=== PATIENT | female | born 1955 | race African-American/Black ===

== ENCOUNTER 2019-04-07 12:02 | Inpatient (IN) | payer OTHER ==
[~2019-04-07] VITALS: Ht 175.3 cm; Wt 102.3 kg
[2019-04-07] MEDS ORDERED: SODIUM CHLORIDE 0.9% 1L BAG IV* STA (12:15)
[2019-04-07] MEDS ORDERED: SOD CHLORIDE 0.9% 500 ML IV STA (12:29)
[2019-04-07] MEDS ORDERED: FUROSEMIDE 40 MG INJ IV ONE (12:30)
[2019-04-07] MEDS ORDERED: CEFTRIAXONE 1 GM/50 ML (PMX) 50 ML IVPB ONE (12:30)
[2019-04-07] MEDS ORDERED: IBUPROFEN 600 MG TAB PO ONE (12:30)
--- NOTE | 2019-04-07 12:42 | ERD ---
ER Documentation Chief Complaint Chief Complaint SHORTNESS OF BREATH, PET SCAN SHOWS PLEUREL EFFUSION HPI This is a 63-year-old woman presenting with increased shortness of breath and dyspnea on exertion x1 week diagnosed with a left pleural effusion yesterday her oncologist's office. She was referred here for admission and pleurocentesis. She is status post proctectomy and colostomy bag placement about 2 months ago and was diagnosed with rectal cancer about 1 year ago. She states over the last few months she has lost about 20 pounds. Patient denies fevers or chills, no abdominal pain, no chest pain, no headache or blurry vision, no fevers or chills. ROS All systems reviewed and are negative except as per history of present illness. Medications Home Meds Reported Medications Hydrocodone/Acetaminophen ([place] 10-325 Tablet) 1 Each Tablet, 1 EACH PO Q6H, TAB 04/07/19 Amlodipine Besylate* (Norvasc*) 5 Mg Tablet, 5 MG PO BID, TAB 04/07/19 Allergies Allergies: Coded Allergies: Sulfa (Sulfonamide Antibiotics) (Verified Allergy, Intermediate, rash, 04/07/19) PMhx/Soc Metastatic rectal carcinoma, hypertension FmHx Family History: No diabetes Physical Exam Vitals Vital Signs Date Temp Pulse Resp B/P (MAP) Pulse Ox O2 O2 Flow FiO2 Time Delivery Rate 04/07/19 88 18 130/77 96 Room Air 17:03 (94) 04/07/19 97 24 134/77 97 Room Air 15:11 (96) 04/07/19 98.0 104 23 134/77 98 Room Air 14:00 (96) 04/07/19 98.3 118 22 150/78 99 12:09 (102) Physical Exam GENERAL: Well-developed, well-nourished, well-hydrated, dyspneic, afebrile HEENT: Moist mucous membranes, pink conjunctiva, no cervical spine tenderness or step-off deformities, no goiter, no jaundice or icterus, extraocular movements intact without pain. No submandibular induration, and no pharyngeal erythema NEURO: Alert and oriented 3, cranial nerves II through XII intact bilaterally, pupils equal round reactive to light, no focal deficits or facial asymmetry, sensation intact distally Strength 5/5 in upper and lower extremities bilaterally CARDIAC: Tachycardic and regular, no murmurs rubs or gallops LUNGS: Clear breath sounds on the right, absent breath sounds on the left ABDOMEN: Soft nontender, no guarding, no rigidity, no rebound, no psoas sign no obturator sign. SKIN: Warm and dry to touch, no abrasions, contusions, or hematomas, no lacerations, no ecchymosis, no target lesions, and without ulcers EXTREMITIES: No clubbing cyanosis or edema, calves are bilaterally symmetrical, no Homans sign, no popliteal cord sign. Distal pulses equal and bilateral PSYCH: Normal affect without agitation or irritability Result Diagram: 04/07/19 1237 04/07/19 1236 Results 24 hrs Laboratory Tests Test 04/07/19 12:36 04/07/19 12:37 04/07/19 13:21 Prothrombin Time 13.3 Sec Prothrombin Time Ratio 1.0 INR International 1.00 Normalized Ratio Activated Partial Thromboplast 35.9 Sec Time Sodium Level 141 mmol/L Potassium Level 3.8 mmol/L Chloride Level 100 mmol/L Carbon Dioxide Level 29 mmol/L Anion Gap 12 Blood Urea Nitrogen 11 mg/dl Creatinine 0.77 mg/dl Est Glomerular Filtrat > 60 mL/min Rate mL/min Glucose Level 119 mg/dl Calcium Level 9.6 mg/dl Total Bilirubin 0.5 mg/dl Direct Bilirubin 0.00 mg/dl Indirect Bilirubin 0.5 mg/dl Aspartate Amino 26 IU/L Transf (AST/SGOT) Alanine 9 IU/L Aminotransferase (ALT/SGPT) Alkaline Phosphatase 73 IU/L Troponin I < 0.012 ng/ml Total Protein 8.1 g/dl Albumin 4.1 g/dl Globulin 4.00 g/dl Albumin/Globulin Ratio 1.02 Lipase 67 U/L White Blood Count 10.0 10^3/ul Red Blood Count 3.81 10^6/ul Hemoglobin 11.0 g/dl Hematocrit 34.9 % Mean Corpuscular Volume 91.6 fl Mean Corpuscular Hemoglobin 28.9 pg Mean Corpuscular 31.5 g/dl Hemoglobin Concent Red Cell Distribution Width 12.7 % Platelet Count 529 10^3/UL Mean Platelet Volume 9.4 fl Immature Granulocytes % 0.500 % Neutrophils % 77.5 % Lymphocytes % 12.8 % Monocytes % 6.9 % Eosinophils % 1.5 % Basophils % 0.8 % Nucleated Red Blood Cells % 0.0 /100WBC Immature Granulocytes # 0.050 10^3/ul Neutrophils # 7.7 10^3/ul Lymphocytes # 1.3 10^3/ul Monocytes # 0.7 10^3/ul Eosinophils # 0.2 10^3/ul Basophils # 0.1 10^3/ul Nucleated Red Blood Cells # 0.0 10^3/ul Urine Color YELLOW Urine Clarity CLEAR Urine pH 6.0 Urine Specific [place] 1.006 Urine Ketones TRACE mg/dL Urine Nitrite NEGATIVE mg/dL Urine Bilirubin NEGATIVE mg/dL Urine Urobilinogen NEGATIVE mg/dL Urine Leukocyte Esterase NEGATIVE Alejandra/ul Urine Hemoglobin NEGATIVE mg/dL Urine Glucose NEGATIVE mg/dL Urine Total Protein NEGATIVE mg/dl Current Medications Medications Dose Sig/Svetlana Start Time Status Last (Trade) Ordered Route PRN Stop Time Admin Dose Reason Admin Sodium 2,000 ml BOLUS OVER 2 04/07/19 DC Chloride HOURS STAT 12:15 04/07/19 (NS) IV* 12:23 Ibuprofen 600 mg ONCE ONCE 04/07/19 DC (Motrin) PO 12:30 04/07/19 12:30 Ceftriaxone 50 ml @ ONCE ONCE 04/07/19 DC Sodium 100 mls/hr IVPB 12:30 04/07/19 12:30 Furosemide 40 mg ONCE ONCE 04/07/19 DC 04/07/19 (Lasix) IV 12:30 04/07/19 13:00 12:31 Sodium 500 ml @ Q1H STAT 04/07/19 DC 04/07/19 Chloride 500 mls/hr IV 12:29 04/07/19 13:00 13:28 1 tab ONCE ONCE 04/07/19 DC 04/07/19 Acetaminophen PO 14:30 04/07/19 14:11 / 14:31 Hydrocodone Bitart ([place] (10/325)) Amlodipine 5 mg BID PO 04/07/19 Besylate 21:00 (Norvasc) IV Flush 3 ml PER 04/07/19 (NS 3 ml) PROTOCOL IV 15:00 Ondansetron 4 mg Q6H PRN 04/07/19 HCl (Zofran IV 15:00 Inj) NAUSEA/VOMITI NG 650 mg Q6H PRN 04/07/19 Acetaminophen PO .PAIN 1-3 15:00 (Tylenol OR TEMP Tab) 650 mg Q6H PRN 04/07/19 Acetaminophen [place] .PAIN 1-3 15:00 (Tylenol OR TEMP Supp) 1 tab Q6H PRN 04/07/19 Acetaminophen PO .MOD PAIN 15:00 / 4-6 Hydrocodone Bitart ([place] (5/325)) 2 tab Q6H PRN 04/07/19 Acetaminophen PO .SEVERE 15:00 / PAIN 7-10 Hydrocodone Bitart ([place] (5/325)) Morphine 2 mg Q4H PRN 04/07/19 Sulfate IV .SEVERE 15:00 (morphine) PAIN 7-10 Docusate 100 mg Q12H PRN 04/07/19 Sodium PO 15:00 (Colace) .CONSTIPATION Magnesium 30 ml DAILY PRN 04/07/19 Hydroxide PO 15:00 (Milk Of Mag) .CONSTIPATION Bisacodyl 10 mg DAILY PRN 04/07/19 (Dulcolax [place] 15:00 Supp) .CONSTIPATION 40 mg DAILY@06 04/08/19 Pantoprazole IV 06:00 (Protonix Iv) Heparin 5,000 unit Q12 SC 04/07/19 Sodium 21:00 (Porcine) (Heparin (5000 Units/1ml)) Furosemide 20 mg DAILY IV 04/08/19 (Lasix) 09:00 Procedures/MDM IV line was established patient was placed on cardiac care unit nurse rhythm strip revealed a narrow complex tachycardia at 105 bpm with upright P and T waves. Patient was afebrile I administered furosemide 40 mg IV and 500 cc normal saline CBC and electrolytes were normal, liver function tests were normal, troponin was negative, urinalysis negative for infection. I spoke to the patient's oncologist Dr. Haider and she recommended admission for ultrasound-guided thoracentesis. Departure Diagnosis: Primary Impression: Pleural effusion Additional Impression: Rectal carcinoma Condition: THOMAS Scott MD Apr 07, 2019 12:42
[2019-04-07] MEDS ORDERED: AMLO5TAB4 PO (12:49)
[2019-04-07] MEDS ORDERED: HYDR-3980 PO (12:51)
[2019-04-07] MEDS ORDERED: HYDROCODONE/APAP (10/325) TAB PO ONE (14:30)
[2019-04-07] MEDS ORDERED: MAGNESIUM HYDROXIDE 30ML CUP PO PRN (15:00)
[2019-04-07] MEDS ORDERED: DOCUSATE SODIUM 100 MG CAP PO PRN (15:00)
[2019-04-07] MEDS ORDERED: NACL 0.9% 3 ML SYG IV SCH (15:00)
[2019-04-07] MEDS ORDERED: morphine 2 MG INJ IV PRN (15:00)
[2019-04-07] MEDS ORDERED: ACETAMINOPHEN 325 MG TAB PO PRN (15:00)
[2019-04-07] MEDS ORDERED: HYDROCODONE/APAP (5/325) TAB PO PRN (15:00)
[2019-04-07] MEDS ORDERED: ACETAMINOPHEN 650 MG SUPP PR PRN (15:00)
[2019-04-07] MEDS ORDERED: ONDANSETRON 4 MG INJ IV PRN (15:00)
[2019-04-07] MEDS ORDERED: BISACODYL 10 MG SUPP PR PRN (15:00)
--- NOTE | 2019-04-07 15:12 | HP ---
Date/Time of Note Date/Time of Note DATE: 04/07/19 TIME: 15:00 Assessment/Plan VTE Prophylaxis Pharmacological prophylaxis: heparin, other Lines/Catheters IV [facility] Type [facility]from [facility] Saline Lock Assessment/Plan Hospital Course Assessment and plan 1. Dyspnea secondary to pleural effusion. - Patient did have chest imaging that demonstrated opacification of left hemithorax without mediastinal shift. - There is also suspicious large left sided pleural effusion with underlying parenchymal disease. - Plan for thoracentesis. - Will get CT scan of the chest. - Patient Services Representative consulted. -Follow-up on cytology. 2. History of rectal cancer with previous rectal cancer surgery. - Oncologist Dr. Haider notified. - We will follow-up. 3. Essential hypertension. - Will resume antihypertensives. - Adjust medications as needed. 4. Anemia. - Follow-up on iron panel. Discussed plan of care with Dr. Faulkner Result Diagram: 04/07/19 1237 04/07/19 1236 Results 24hrs Laboratory Tests Test 04/07/19 12:36 04/07/19 12:37 04/07/19 13:21 Prothrombin Time 13.3 Prothrombin Time Ratio 1.0 INR International Normalized Ratio 1.00 Activated Partial Thromboplast Time 35.9 H Sodium Level 141 Potassium Level 3.8 Chloride Level 100 Carbon Dioxide Level 29 Anion Gap 12 Blood Urea Nitrogen 11 Creatinine 0.77 Est Glomerular Filtrat Rate mL/min > 60 Glucose Level 119 Calcium Level 9.6 Total Bilirubin 0.5 Direct Bilirubin 0.00 Indirect Bilirubin 0.5 Aspartate Amino Transf (AST/SGOT) 26 Alanine Aminotransferase (ALT/SGPT) 9 L Alkaline Phosphatase 73 Troponin I < 0.012 Total Protein 8.1 Albumin 4.1 Globulin 4.00 H Albumin/Globulin Ratio 1.02 Lipase 67 White Blood Count 10.0 Red Blood Count 3.81 L Hemoglobin 11.0 L Hematocrit 34.9 L Mean Corpuscular Volume 91.6 Mean Corpuscular Hemoglobin 28.9 L Mean Corpuscular Hemoglobin Concent 31.5 L Red Cell Distribution Width 12.7 Platelet Count 529 H Mean Platelet Volume 9.4 Immature Granulocytes % 0.500 H Neutrophils % 77.5 H Lymphocytes % 12.8 L Monocytes % 6.9 Eosinophils % 1.5 Basophils % 0.8 Nucleated Red Blood Cells % 0.0 Immature Granulocytes # 0.050 H Neutrophils # 7.7 H Lymphocytes # 1.3 Monocytes # 0.7 Eosinophils # 0.2 Basophils # 0.1 Nucleated Red Blood Cells # 0.0 Urine Color YELLOW Urine Clarity CLEAR Urine pH 6.0 Urine Specific [place] 1.006 Urine Ketones TRACE A Urine Nitrite NEGATIVE Urine Bilirubin NEGATIVE Urine Urobilinogen NEGATIVE Urine Leukocyte Esterase NEGATIVE Urine Hemoglobin NEGATIVE Urine Glucose NEGATIVE Urine Total Protein NEGATIVE HPI/ROS Admit Date/Time Admit Date/Time Hx of Present Illness This is a 63-year-old female with history of rectal cancer diagnosed in 2018, rectal cancer surgery on February 18, 2019 with colostomy placed, suspect metastasis with reported right groin recurring tumor, who was brought to [facility] due to reports of increased shortness of breath. Patient reports that she had increased shortness of breath for 1 week duration. She denies any cough or fever. She did state that she had more dyspnea on exertion. She was seen by her oncologist 1 day prior to admission where she was diagnosed with a large pleural effusion and was advised for follow-up in the hospital. On examination she did have a chest x-ray in the hospital that did reconfirm her to have left sided pleural effusion with near complete opacification in the left hemithorax without mediastinal shift. There was also suspect large left-sided pleural effusion with underlying parenchymal disease. She was noted to be slightly anemic hypochromic microcytic. Currently she remains alert and oriented. No signs of respiratory distress. We will evaluate her for the aformentiond issues. ROS 12 point review of systems obtained and entirely negative except as mentioned in history of present illness PMH/Family/Social Past Medical History Medical/surgical history 1. Hypertension 2. Rectal cancer 3. Rectal cancer surgery on February 18, 2019 with colostomy placed 4. Suspect metastasis to the right groin recurring tumor Medications Current Medications Amlodipine Besylate (Norvasc) 5 mg BID PO ; Start 04/07/19 at 21:00 IV Flush (NS 3 ml) 3 ml PER PROTOCOL IV ; Start 04/07/19 at 15:00 Ondansetron HCl (Zofran Inj) 4 mg Q6H PRN IV NAUSEA/VOMITING; Start 04/07/19 at 15:00 Acetaminophen (Tylenol Tab) 650 mg Q6H PRN PO .PAIN 1-3 OR TEMP; Start 04/07/19 at 15:00 Acetaminophen (Tylenol Supp) 650 mg Q6H PRN [place] .PAIN 1-3 OR TEMP; Start 04/07/19 at 15:00 Acetaminophen/ Hydrocodone Bitart ([place] (5/325)) 1 tab Q6H PRN PO .MOD PAIN 4- 6; Start 04/07/19 at 15:00 Acetaminophen/ Hydrocodone Bitart ([place] (5/325)) 2 tab Q6H PRN PO .SEVERE PAIN 7-10; Start 04/07/19 at 15:00 Morphine Sulfate (morphine) 2 mg Q4H PRN IV .SEVERE PAIN 7-10; Start 04/07/19 at 15:00 Docusate Sodium (Colace) 100 mg Q12H PRN PO .CONSTIPATION; Start 04/07/19 at 15:00 Magnesium Hydroxide (Milk Of Mag) 30 ml DAILY PRN PO .CONSTIPATION; Start 04/07/19 at 15:00 Bisacodyl (Dulcolax Supp) 10 mg DAILY PRN [place] .CONSTIPATION; Start 04/07/19 at 15:00 Pantoprazole (Protonix Iv) 40 mg DAILY@06 IV ; Start 04/08/19 at 06:00; Status UNV Heparin Sodium (Porcine) (Heparin (5000 Units/1ml)) 5,000 unit Q12 SC ; Start 04/07/19 at 21:00 Coded Allergies: Sulfa (Sulfonamide Antibiotics) (Verified Allergy, Intermediate, rash, 04/07/19) Family History Significant Family History: other (Reports mother had history of cervical can cer) Social History Alcohol Use: none Smoking Status: Never smoker Drug Use: none Exam/Review of Systems Vital Signs Vitals Vital Signs Date Temp Pulse Resp B/P (MAP) Pulse Ox O2 O2 Flow FiO2 Time Delivery Rate 04/07/19 98.3 118 22 150/78 99 12:09 (102) Exam Constitutional: alert, oriented Psych: nl mood/affect Head: normocephalic Eyes: nl conjunctiva Neck: non-tender Respiratory: diminished breath sounds (on left lung field ) Gastrointestinal: soft, other (colostomy bag ) Musculoskeletal: nl extremities to inspection, nl gait and stance Extremities: normal pulses 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
[2019-04-07] MEDS ORDERED: LIDOCAINE 1% (MPF) 5 ML VIAL ONE (18:12)
[2019-04-07 19:45] VITALS: Ht 175.3 cm; Wt 102.3 kg
[2019-04-07 20:00] VITALS: PULSE 108
[2019-04-07] MEDS: AMLODIPINE 5 MG TAB PO SCH (21:02)
[2019-04-07] MEDS: HYDROCODONE/APAP (5/325) TAB PO PRN (21:03)
[2019-04-07] MEDS: HEPARIN 5,000 UNIT/1 ML VIAL SC SCH (21:07)
[2019-04-08] VITALS (11 sets, daily range): BP systolic 118–166; BP diastolic 62–82; PULSE 82–98; RESP 18–20
[2019-04-08] MEDS: PANTOPRAZOLE 40 MG INJ IV SCH (05:32)
[2019-04-08] MEDS: FUROSEMIDE 20 MG INJ IV SCH (08:12)
[2019-04-08] MEDS: HEPARIN 5,000 UNIT/1 ML VIAL SC SCH ×2 (08:13→20:47)
[2019-04-08] MEDS: AMLODIPINE 5 MG TAB PO SCH ×2 (08:13→20:37)
--- NOTE | 2019-04-08 10:18 | CONS ---
Assessment/Plan Assessment/Plan Assessment/Plan (Daily) Assessment and recommendations; 1. Patient admitted with shortness of breath due to very large left pleural effusion, status post left thoracentesis where about a liter of fluid was removed with significant residual pleural effusion. This likely is malignant in etiology. 2. Hypertension. 3. Mild anemia. 4. Currently there is no evidence to indicate any infectious process. 5. History of recent colostomy with radiation and chemotherapy for colorectal cancer. Continue current supportive care. Perform repeat left thoracentesis. Send pleural fluid again for cytology. Consultation Date/Type/Reason Admit Date/Time Date of Consultation: Apr 08, 2019 Type of Consult Pulmonary Patient is a very pleasant 63-year-old lady who came into the hospital with shortness of breath. Upon evaluation a chest x-ray was done which showed a very large left pleural effusion. Patient underwent left thoracentesis yesterday and about a liter of fluid was removed with significant improvement in shortness of breath. Patient denies any chest pain, coughing, wheezing, sputum production or hemoptysis. Any fever or chills. According to her she was fine until about a few days ago and the symptoms gradually started. Past medical history; 1. History of recent colorectal cancer, status post colostomy, status post radiation and chemotherapy. Cancer is stage III. 2. Hypertension. 3. Anemia. Medications; reviewed. Allergies; sulfa drugs. Social history; history of smoking in the past. Family history; she lives with her daughter. No history of malignancy. 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 Review of systems; denies any headache, seizures, visual changes, Chest pain, coughing, wheezing, sputum production or hemoptysis. Any fever or chills. Any abdominal pain, nausea vomiting. Any weight loss. Any skin changes or any arthritis symptoms. Denies any dysphasia. Shortness of breath has markedly improved after thoracentesis. General exam; elderly lady, awake alert, currently in no distress. Date/Time of Note DATE: 04/08/19 TIME: 10:13 Past Medical History Home Meds Reported Medications Hydrocodone/Acetaminophen ([place] 10-325 Tablet) 1 Each Tablet, 1 EACH PO Q6H, TAB 04/07/19 Amlodipine Besylate* (Norvasc*) 5 Mg Tablet, 5 MG PO BID, TAB 04/07/19 Medications Current Medications Amlodipine Besylate (Norvasc) 5 mg BID PO Last administered on 04/08/19at 08:13; Admin Dose 5 MG; Start 04/07/19 at 21:00 IV Flush (NS 3 ml) 3 ml PER PROTOCOL IV ; Start 04/07/19 at 15:00 Ondansetron HCl (Zofran Inj) 4 mg Q6H PRN IV NAUSEA/VOMITING; Start 04/07/19 at 15:00 Acetaminophen (Tylenol Tab) 650 mg Q6H PRN PO .PAIN 1-3 OR TEMP; Start 04/07/19 at 15:00 Acetaminophen (Tylenol Supp) 650 mg Q6H PRN [place] .PAIN 1-3 OR TEMP; Start 04/07/19 at 15:00 Acetaminophen/ Hydrocodone Bitart ([place] (5/325)) 1 tab Q6H PRN PO .MOD PAIN 4- 6 Last administered on 04/08/19at 05:33; Admin Dose 1 TAB; Start 04/07/19 at 15:00 Acetaminophen/ Hydrocodone Bitart ([place] (5/325)) 2 tab Q6H PRN PO .SEVERE PAIN 7-10 Last administered on 04/07/19at 21:03; Admin Dose 2 TAB; Start 04/07/19 at 15:00 Morphine Sulfate (morphine) 2 mg Q4H PRN IV .SEVERE PAIN 7-10; Start 04/07/19 at 15:00 Docusate Sodium (Colace) 100 mg Q12H PRN PO .CONSTIPATION; Start 04/07/19 at 15:00 Magnesium Hydroxide (Milk Of Mag) 30 ml DAILY PRN PO .CONSTIPATION; Start 04/07/19 at 15:00 Bisacodyl (D[place]col[place] Supp) 10 mg DAILY PRN [place] .CONSTIPATION; Start 04/07/19 at 15:00 Pantoprazole (Protonix Iv) 40 mg DAILY@06 IV Last administered on 04/08/19at 05:32; Admin Dose 40 MG; Start 04/08/19 at 06:00 Heparin Sodium (Porcine) (Heparin (5000 Units/1ml)) 5,000 unit Q12 SC Last administered on 04/08/19at 08:13; Admin Dose 5,000 UNIT; Start 04/07/19 at 21:00 Furosemide (Lasix) 20 mg DAILY IV Last administered on 04/08/19at 08:12; Admin Dose 20 MG; Start 04/08/19 at 09:00 Allergies: Coded Allergies: Sulfa (Sulfonamide Antibiotics) (Verified Allergy, Intermediate, rash, 04/07/19) Social History Alcohol Use: none Smoking Status: Never smoker Drug Use: none Exam/Review of Systems Exam Vitals Vital Signs Date Temp Pulse Resp B/P (MAP) Pulse Ox O2 O2 Flow FiO2 Time Delivery Rate 04/08/19 91 08:00 04/08/19 98.6 20 143/68 95 Room Air 07:09 (93) Intake and Output 04/07/19 04/07/19 04/08/19 1515:00 23:00 07:00 IntakeIntake Total 1000 ml BalanceBalance 1000 ml Exam H EENT exam; supple neck, no JVD. No lymphadenopathy. Midline trachea. No thyromegaly. Patient has fair dentition. No neck masses. Chest exam; diminished breath sounds left lung. Right lung is fairly clear. S1-S2 audible, no murmurs. Regular rhythm. Abdomen exam; soft, nontender. No organomegaly. Bowel sounds audible. Colostomy in place. There is a well-healed abdominal scar. Extremity exam; no peripheral edema clubbing. 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 Results Result Diagram: 04/08/19 0456 04/08/19 0456 Results 24hrs Laboratory Tests Test 04/07/19 12:36 04/07/19 12:37 04/07/19 13:21 04/07/19 17:30 Prothrombin Time 13.3 Prothrombin Time 1.0 Ratio INR International 1.00 Normalized Ratio Activated 35.9 H Partial Thromboplast Time Sodium Level 141 Potassium Level 3.8 Chloride Level 100 Carbon Dioxide Level 29 Anion Gap 12 Blood Urea Nitrogen 11 Creatinine 0.77 Est Glomerular > 60 Filtrat Rate mL/min Glucose Level 119 Calcium Level 9.6 Total Bilirubin 0.5 Direct Bilirubin 0.00 Indirect Bilirubin 0.5 Aspartate Amino 26 Transf (AST/SGOT) Alanine 9 L Aminotransferase (ALT /SGPT) Alkaline Phosphatase 73 Troponin I < 0.012 Total Protein 8.1 Albumin 4.1 Globulin 4.00 H Albumin/Globulin 1.02 Ratio Lipase 67 White Blood Count 10.0 Red Blood Count 3.81 L Hemoglobin 11.0 L Hematocrit 34.9 L Mean Corpuscular 91.6 Volume Mean Corpuscular 28.9 L Hemoglobin Mean Corpuscular 31.5 L Hemoglobin Concent Red Cell Distribution 12.7 Width Platelet Count 529 H Mean Platelet Volume 9.4 Immature Granulocytes 0.500 H % Neutrophils % 77.5 H Lymphocytes % 12.8 L Monocytes % 6.9 Eosinophils % 1.5 Basophils % 0.8 Nucleated Red Blood 0.0 Cells % Immature Granulocytes 0.050 H # Neutrophils # 7.7 H Lymphocytes # 1.3 Monocytes # 0.7 Eosinophils # 0.2 Basophils # 0.1 Nucleated Red Blood 0.0 Cells # Urine Color YELLOW Urine Clarity CLEAR Urine pH 6.0 Urine Specific 1.006 [place] Urine Ketones TRACE A Urine Nitrite NEGATIVE Urine Bilirubin NEGATIVE Urine Urobilinogen NEGATIVE Urine Leukocyte NEGATIVE Esterase Urine Hemoglobin NEGATIVE Urine Glucose NEGATIVE Urine Total Protein NEGATIVE Body Fluid Type PLEURAL FLUID Body Fluid Volume 975.0 Body Fluid Color SHANIQUA Body Fluid Appearance HAZY Body Fluid WBC 888 Body Fluid RBC (Auto) 67156 Body Fluid 59.3 Polynuclear WBCs (%) Body Fluid 40.7 Mononuclear Cells % Auto Body Fluid Glucose 107 Body Fluid Total 5.3 Protein Body Fluid 485 Lactate Dehydrogenase Body Fluid Amylase < 30 Test 04/08/19 04:56 White Blood Count 8.0 Red Blood Count 3.40 L Hemoglobin 9.9 L Hematocrit 31.6 L Mean Corpuscular 92.9 Volume Mean Corpuscular 29.1 Hemoglobin Mean Corpuscular 31.3 L Hemoglobin Concent Red Cell Distribution 12.8 Width Platelet Count 489 H Mean Platelet Volume 9.5 Immature Granulocytes 0.400 % Neutrophils % 70.4 Lymphocytes % 15.9 Monocytes % 9.9 Eosinophils % 2.7 Basophils % 0.7 Nucleated Red Blood 0.0 Cells % Immature Granulocytes 0.030 # Neutrophils # 5.6 Lymphocytes # 1.3 Monocytes # 0.8 Eosinophils # 0.2 Basophils # 0.1 Nucleated Red Blood 0.0 Cells # Sodium Level 140 Potassium Level 3.8 Chloride Level 101 Carbon Dioxide Level 32 H Anion Gap 7 Blood Urea Nitrogen 15 Creatinine 0.96 Est Glomerular > 60 Filtrat Rate mL/min Glucose Level 107 Hemoglobin A1c 5.4 Calcium Level 9.1 Phosphorus Level 3.5 Magnesium Level 2.0 Total Bilirubin 0.3 Direct Bilirubin 0.00 Indirect Bilirubin 0.3 Aspartate Amino 16 Transf (AST/SGOT) Alanine 7 L Aminotransferase (ALT /SGPT) Alkaline Phosphatase 60 Total Protein 6.7 # Albumin 3.6 Globulin 3.10 Albumin/Globulin 1.16 Ratio Triglycerides Level 77 Cholesterol Level 142 LDL Cholesterol, 94 Calculated HDL Cholesterol 33 L Cholesterol/HDL Ratio 4.3 Thyroid Stimulating 2.940 Hormone (TSH) Free Thyroxine Index 3.84 Thyroxine (T4) 10.3 Triiodothyronine (T3) 37.3 Uptake Medications Medication Current Medications Amlodipine Besylate (Norvasc) 5 mg BID PO Last administered on 04/08/19at 08:13; Admin Dose 5 MG; Start 04/07/19 at 21:00 IV Flush (NS 3 ml) 3 ml PER PROTOCOL IV ; Start 04/07/19 at 15:00 Ondansetron HCl (Zofran Inj) 4 mg Q6H PRN IV NAUSEA/VOMITING; Start 04/07/19 at 15:00 Acetaminophen (Tylenol Tab) 650 mg Q6H PRN PO .PAIN 1-3 OR TEMP; Start 04/07/19 at 15:00 Acetaminophen (Tylenol Supp) 650 mg Q6H PRN [place] .PAIN 1-3 OR TEMP; Start 04/07/19 at 15:00 Acetaminophen/ Hydrocodone Bitart ([place] (5/325)) 1 tab Q6H PRN PO .MOD PAIN 4- 6 Last administered on 04/08/19at 05:33; Admin Dose 1 TAB; Start 04/07/19 at 15:00 Acetaminophen/ Hydrocodone Bitart ([place] (5/325)) 2 tab Q6H PRN PO .SEVERE PAIN 7-10 Last administered on 04/07/19at 21:03; Admin Dose 2 TAB; Start 04/07/19 at 15:00 Morphine Sulfate (morphine) 2 mg Q4H PRN IV .SEVERE PAIN 7-10; Start 04/07/19 at 15:00 Docusate Sodium (Colace) 100 mg Q12H PRN PO .CONSTIPATION; Start 04/07/19 at 15:00 Magnesium Hydroxide (Milk Of Mag) 30 ml DAILY PRN PO .CONSTIPATION; Start 04/07/19 at 15:00 Bisacodyl (Dulcolax Supp) 10 mg DAILY PRN [place] .CONSTIPATION; Start 04/07/19 at 15:00 Pantoprazole (Protonix Iv) 40 mg DAILY@06 IV Last administered on 04/08/19at 05:32; Admin Dose 40 MG; Start 04/08/19 at 06:00 Heparin Sodium (Porcine) (Heparin (5000 Units/1ml)) 5,000 unit Q12 SC Last administered on 04/08/19 08:13; Admin Dose 5,000 UNIT; Start 04/07/19 at 21:00 Furosemide (Lasix) 20 mg DAILY IV Last administered on 04/08/19 08:12; Admin Dose 20 MG; Start 04/08/19 at 09:00 BABATUNDE MASTERS 5, 2019 10:18
[2019-04-08] MEDS ORDERED: LIDOCAINE 1% (MPF) 5 ML VIAL ONE (11:27)
[2019-04-08] MEDS: HYDROCODONE/APAP (5/325) TAB PO PRN ×2 (11:59→19:53)
--- NOTE | 2019-04-08 13:13 | RADRPT ---
Echocardiogram Report Patient Name: MILLICENT BIRCH APatient ID: [id number] : 1955 (63y 5m)Study Date: 04/08/2019 8:43:47 AM Gender: FAccession #: [id number] Tech: LE Location: [facility] Ref.Physician: BREANNE WHITMAN Height(Cm): BSA: Weight(Kg): Quality: Technically Difficult StudyOrder Physician: BREANNE WHITMAN Account #: Procedures: Echocardiographic Report: Transthoracic echocardiogram with complete 2D, M-Mode, and doppler examination. Indications: Congestive Heart Failure. Measurements: 2D/M Mode Doppler Measurement Value Normal Range Measurement Value Normal Range LVIDd 2D 4.5 [ 3.8 - 5.2 ] cm AV Mean [place] 0.8 [ 70.0 - 90.0 ] cm/sec LVIDs 2D 3.2 [ 2.2 - 3.5 ] cm AV Mean PG 3.0 [ 2.0 - 4.0 ] mmHg LVPWd 2D 1.1 [ 0.6 - 0.9 ] cm AV Peak [place] 1.1 [ 100.0 - 170.0 ] cm/sec IVSd 2D 1.1 [ 0.6 - 0.9 ] cm AV Peak PG 5.0 [ 2.0 - 9.0 ] mmHg EDV 2D 91.0 [ 46.0 - 106.0 ] ml AV VTI 14.0 cm ESV 2D 40.0 [ 14.0 - 42.0 ] ml LVOT Peak [place] 1.0 [ 70.0 - 110.0 ] cm/sec EF 2D 56.0 [ 54.0 - 74.0 ] percent LVOT Peak PG 4.0 [ 2.0 - 6.0 ] mmHg LVOT Diam 2.0 [ 2.1 - 2.5 ] cm MV E Peak Carlitos 0.7 [ 60.0 - 130.0 ] cm/sec MV A Peak [place] 0.6 [ 100.0 - 120.0 ] cm/sec MV E/A 1.2 [ 0.8 - 1.5 ] ratio MV Decel Time 162 [ 104 - 258 ] msec Lat E` Carlitos 0.1 [ 10.0 - 15.0 ] cm/sec Lateral E/E` 13.2 [ 1.0 - 2.0 ] ratio Med E` Carlitos 0.0 cm/sec MV E/A 1.2 [ 0.8 - 1.5 ] ratio TR Peak Carlitos 2.8 [ 100.0 - 280.0 ] cm/sec TR Peak PG 32.0 mmHg PV Peak Carlitos 0.7 [ 40.0 - 80.0 ] cm/sec PV Peak PG 2.0 mmHg Findings: Left Ventricle: Normal left ventricular systolic function. Normal left ventricular cavity size. Normal left ventricular wall thickness. Ejection fraction is visually estimated at 55-60 %. Tissue Doppler/Mitral Doppler indices are consistent with pseudonormalization with mildly elevated left atrial pressure (Stage II diastolic dysfunction). Right Ventricle: Normal right ventricular size. Normal right ventricular systolic function. Left Atrium: The left atrium is normal in size. Right Atrium: The right atrium is normal in size. Mitral Valve: Mitral valve is not well visualized. No mitral valve regurgitation is seen. Aortic Valve: No significant aortic stenosis or insufficiency. Aortic valve not well visualized. Tricuspid Valve: Tricuspid valve not well visualized. Right ventricular systolic pressure is consistent with mild pulmonary hypertension. The estimated Peak RVSP is 35 mmHg. There is trace tricuspid regurgitation. Pulmonic Valve: Pulmonic valve not well visualized. Pericardium: Normal pericardium with no significant pericardial effusion. Bilateral large pleural effusions seen. Aorta: Normal aortic root. IVC: Normal size and normal respiratory collapse consistent with normal right atrial pressure. Conclusions: Technically difficut study. Normal left ventricular systolic function. Pseudonormal diastolic function. Trace tricuspid regurgitation and mild pulmonary hypertension. Bilateral large pleural effusions. Electronically Signed By: Blanca Walden 2019-04-08 13:13:00 PDT
--- NOTE | 2019-04-08 15:27 | CONS ---
Assessment/Plan Assessment/Plan Hospital Course (Demo Recall) #STAGE III Anal Cancer -PET CT from 04/06/2019 already reveals recurrence to the pleura, left sided pleural effusion, labia,inguinal LN -given the rapid spread of this tumor that has PROGRESSED THROUGH [place] BASED CHEMOTHERAPY, WE WILL NEED TO START IMMUNOTHERAPY ASHIA. WILL ALSO SEND TO [facility], DR. KRYS GARZA FOR A SECOND OPNION AND CONSIDERATION OF CLINICAL TRIAL GIVEN THE AGRESSIVE NATURE OF THIS DISEASE. -WILL START KEYTRUDA 200MG IV 3 WEEKS as an out patient #SOB -2/2 pleural effusion -s/p thoracentesis x 2 #RA -stable, continue to monitor -continue management per Rheumatology and PMD Thank you for the opportunity to participate in this patients care A total of 40 minutes of face to face time was spent speaking with the patient, of which greater than 50% was spent in counseling and coordination of care and the detailed question and answer session. Consultation Date/Type/Reason Admit Date/Time Apr 07, 2019 at 13:38 Initial Consult Date 04/08/19 Type of Consult oncology Reason for Consultation metastatic anal cancer Requesting Provider: BE PARDO Date/Time of Note DATE: 04/08/19 TIME: 15:23 24 HR Interval Summary Free Text/Dictation 62 yo female with histoyr of RA who 1 mo ago began to have intermittent rectal bleeding and pain which she attributed to hemorrhoids. Pt was referred Dr. Khalil who performed a biopsy which revealed papillary hidradenoma. 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 06/04/[address] was done which revealed metabolically active distal rectal/ anal wall thickening , related to primary anal ca. also seen is a thymoma as well as a enlarged metabolically active right inguinal LN 07/08/18: Will start Cycle 1, Day 1 of the Mitomycin/5-FU regimen. 07/08/18 started 5fu/mitomycin 08/12/18 : to start 2nd cycles of 5fu mitomycin today 08/22/18 radiation was completed 11/2018 Growth noted in L groin 11/17/[address] demonstrates decrease in intensity and size of the anal hypermetabolic mass and righ inguinal LN. A new right upper thigh nodule is noted measuring 2.5 cm with SUV 8.2. Pt had this nodule removed on this day. path consistent with squamous cell carcinoma 12/30/18 pt now noted to have recurrence in anus and a thigh mass growing again 01/09/[address] reveals 3 cm anterior mediastinal mass representing thymic tissue. Right lateral anal wall has a mass now SUV 11 from 7.2 and a 1.8cm soft tissue nodule in the right inner thigh/ inferior aspect of right labia representing recurrent tumor 01/21/[address] Garza who stated patient needs surgery ashia and LAB ANIMAL TECHNOLOGIST evaluation to ensure mass has not spread to vagina 02/17/19 underwent tumor resection and had diverting ostomy placed by Dr. Khalil 04/06/2019 pt now c/o SOB x 5 days. -PET CT from 04/06/2019 already reveals recurrence to the pleura, left sided pleural effusion, labia,inguinal LN 04/07/19 pt admitted to [facility] with SOB. L sided pleural effusion noted. pt has since undergone thoracentesis x 2 Exam/Review of Systems Exam Vitals Vital Signs Date Temp Pulse Resp B/P (MAP) Pulse Ox O2 O2 Flow FiO2 Time Delivery Rate 04/08/19 95 12:00 04/08/19 20 125/71 98 Room Air 11:53 (89) 04/08/19 97.5 11:40 Intake and Output 04/07/19 04/07/19 04/08/19 1515:00 23:00 07:00 IntakeIntake Total 1000 ml BalanceBalance 1000 ml Constitutional: alert, oriented Psych: no complaints Head: normocephalic Eyes: nl conjunctiva ENMT: nl external ears & nose Neck: supple Cardiovascular: other (decreased BX in L lung) Gastrointestinal: soft Musculoskeletal: nl extremities to inspection Extremities: normal pulses Neurological: ASSEMBLER SHOW MOTOR II-XII intact Lymph: nl lymph nodes Results Result Diagram: 04/08/19 0456 04/08/19 0456 Results 24hrs Laboratory Tests Test 04/07/19 17:30 04/08/19 04:56 Body Fluid Type PLEURAL FLUID Body Fluid Volume 975.0 Body Fluid Color SHANIQUA Body Fluid Appearance HAZY Body Fluid WBC 888 Body Fluid RBC (Auto) 46560 Body Fluid Polynuclear WBCs (%) 59.3 Body Fluid Mononuclear Cells % Auto 40.7 Body Fluid Glucose 107 Body Fluid Total Protein 5.3 Body Fluid Lactate Dehydrogenase 485 Body Fluid Amylase < 30 White Blood Count 8.0 Red Blood Count 3.40 L Hemoglobin 9.9 L Hematocrit 31.6 L Mean Corpuscular Volume 92.9 Mean Corpuscular Hemoglobin 29.1 Mean Corpuscular Hemoglobin Concent 31.3 L Red Cell Distribution Width 12.8 Platelet Count 489 H Mean Platelet Volume 9.5 Immature Granulocytes % 0.400 Neutrophils % 70.4 Lymphocytes % 15.9 Monocytes % 9.9 Eosinophils % 2.7 Basophils % 0.7 Nucleated Red Blood Cells % 0.0 Immature Granulocytes # 0.030 Neutrophils # 5.6 Lymphocytes # 1.3 Monocytes # 0.8 Eosinophils # 0.2 Basophils # 0.1 Nucleated Red Blood Cells # 0.0 Sodium Level 140 Potassium Level 3.8 Chloride Level 101 Carbon Dioxide Level 32 H Anion Gap 7 Blood Urea Nitrogen 15 Creatinine 0.96 Est Glomerular Filtrat Rate mL/min > 60 Glucose Level 107 Hemoglobin A1c 5.4 Calcium Level 9.1 Phosphorus Level 3.5 Magnesium Level 2.0 Total Bilirubin 0.3 Direct Bilirubin 0.00 Indirect Bilirubin 0.3 Aspartate Amino Transf (AST/SGOT) 16 Alanine Aminotransferase (ALT/SGPT) 7 L Alkaline Phosphatase 60 Total Protein 6.7 # Albumin 3.6 Globulin 3.10 Albumin/Globulin Ratio 1.16 Triglycerides Level 77 Cholesterol Level 142 LDL Cholesterol, Calculated 94 HDL Cholesterol 33 L Cholesterol/HDL Ratio 4.3 Thyroid Stimulating Hormone (TSH) 2.940 Free Thyroxine Index 3.84 Thyroxine (T4) 10.3 Triiodothyronine (T3) Uptake 37.3 Medications Medication Current Medications Amlodipine Besylate (Norvasc) 5 mg BID PO Last administered on 04/08/19at 08:13; Admin Dose 5 MG; Start 04/07/19 at 21:00 IV Flush (NS 3 ml) 3 ml PER PROTOCOL IV ; Start 04/07/19 at 15:00 Ondansetron HCl (Zofran Inj) 4 mg Q6H PRN IV NAUSEA/VOMITING; Start 04/07/19 at 15:00 Acetaminophen (Tylenol Tab) 650 mg Q6H PRN PO .PAIN 1-3 OR TEMP; Start 04/07/19 at 15:00 Acetaminophen (Tylenol Supp) 650 mg Q6H PRN [place] .PAIN 1-3 OR TEMP; Start 04/07/19 at 15:00 Acetaminophen/ Hydrocodone Bitart ([place] (5/325)) 1 tab Q6H PRN PO .MOD PAIN 4- 6 Last administered on 04/08/19at 05:33; Admin Dose 1 TAB; Start 04/07/19 at 15:00 Acetaminophen/ Hydrocodone Bitart ([place] (5/325)) 2 tab Q6H PRN PO .SEVERE PAIN 7-10 Last administered on 04/08/19at 11:59; Admin Dose 2 TAB; Start 04/07/19 at 15:00 Morphine Sulfate (morphine) 2 mg Q4H PRN IV .SEVERE PAIN 7-10; Start 04/07/19 at 15:00 Docusate Sodium (Colace) 100 mg Q12H PRN PO .CONSTIPATION; Start 04/07/19 at 15:00 Magnesium Hydroxide (Milk Of Mag) 30 ml DAILY PRN PO .CONSTIPATION; Start 04/07/19 at 15:00 Bisacodyl (Dulcolax Supp) 10 mg DAILY PRN [place] .CONSTIPATION; Start 04/07/19 at 15:00 Pantoprazole (Protonix Iv) 40 mg DAILY@06 IV Last administered on 04/08/19at 05:32; Admin Dose 40 MG; Start 04/08/19 at 06:00 Heparin Sodium (Porcine) (Heparin (5000 Units/1ml)) 5,000 unit Q12 SC Last administered on 04/08/19at 08:13; Admin Dose 5,000 UNIT; Start 04/07/19 at 21:00 Furosemide (Lasix) 20 mg DAILY IV Last administered on 04/08/19at 08:12; Admin Dose 20 MG; Start 04/08/19 at 09:00 DORIS MILLER M.D. Apr 08, 2019 15:27
--- NOTE | 2019-04-08 17:20 | PN ---
Date/Time of Note Date/Time of Note DATE: 04/08/19 TIME: 16:40 Assessment/Plan VTE Prophylaxis Risk score (from Ns)>0 risk: 6 SCD applied (from Nsg): Yes Pharmacological prophylaxis: heparin Lines/Catheters IV Catheter Type (from [facility]): Saline Lock Assessment/Plan Hospital Course S: improved with 2nd thora done today O : General exam: Alert no distress Chest exam; diminished breath sounds left lung. Right lung is fairly clear. S1-S2 audible, no murmurs. Regular rhythm. Abdomen exam; soft, nontender. No organomegaly. Bowel sounds audible. Colostomy in place. There is a well-healed abdominal scar. Extremity exam; no peripheral edema clubbing. PRINT GRAPHIC DESIGNER exam; no focal deficit. assessment and plan: 1. Dyspnea secondary to pleural effusion. - s/p thoracentesis x 2 04/07/19 and 04/08/19 with 1000cc and 1500 cc drained respectively -CXR still showing moderate effusion -Left lower lung atelectasis/infiltrate. 2. STAGE III Anal Cancer History of rectal cancer with previous rectal cancer surgery. -per Oncology, -PET CT from 04/06/2019 already reveals recurrence to the pleura, left sided pleural effusion, labia,inguinal LN -given the rapid spread of this tumor that has progressed through [place] based chemotherapy, we will need to start immunotherapy [place]. -Will also send to [facility], Dr. Hong Garza for a second opinion and consideration of clinical trial given the given the aggressive nature of this disease. -We will start Keytruda 200 mg IV for 3 weeks as outpatient 3. Essential hypertension. -improved control on current meds 4. Anemia. -stable 5. Chronic RA -stable, continue to monitor DISPOSITION: -Await pulmonary final recommendations regarding pleural effusions as patient still has significant effusion even after thoracentesis x2 -Continue routine inpatient monitoring, consider empiric antibiotics for possible infiltrates, will defer to pulmonary -Further interventions per clinical course. If no further pulmonary interven tions in-house, consider discharge Result Diagram: 04/08/19 0456 04/08/19 0456 Results 24hrs Laboratory Tests Test 04/07/19 17:30 04/08/19 04:56 Body Fluid Type PLEURAL FLUID Body Fluid Volume 975.0 Body Fluid Color SHANIQUA Body Fluid Appearance HAZY Body Fluid WBC 888 Body Fluid RBC (Auto) 68972 Body Fluid Polynuclear WBCs (%) 59.3 Body Fluid Mononuclear Cells % Auto 40.7 Body Fluid Glucose 107 Body Fluid Total Protein 5.3 Body Fluid Lactate Dehydrogenase 485 Body Fluid Amylase < 30 White Blood Count 8.0 Red Blood Count 3.40 L Hemoglobin 9.9 L Hematocrit 31.6 L Mean Corpuscular Volume 92.9 Mean Corpuscular Hemoglobin 29.1 Mean Corpuscular Hemoglobin Concent 31.3 L Red Cell Distribution Width 12.8 Platelet Count 489 H Mean Platelet Volume 9.5 Immature Granulocytes % 0.400 Neutrophils % 70.4 Lymphocytes % 15.9 Monocytes % 9.9 Eosinophils % 2.7 Basophils % 0.7 Nucleated Red Blood Cells % 0.0 Immature Granulocytes # 0.030 Neutrophils # 5.6 Lymphocytes # 1.3 Monocytes # 0.8 Eosinophils # 0.2 Basophils # 0.1 Nucleated Red Blood Cells # 0.0 Sodium Level 140 Potassium Level 3.8 Chloride Level 101 Carbon Dioxide Level 32 H Anion Gap 7 Blood Urea Nitrogen 15 Creatinine 0.96 Est Glomerular Filtrat Rate mL/min > 60 Glucose Level 107 Hemoglobin A1c 5.4 Calcium Level 9.1 Phosphorus Level 3.5 Magnesium Level 2.0 Total Bilirubin 0.3 Direct Bilirubin 0.00 Indirect Bilirubin 0.3 Aspartate Amino Transf (AST/SGOT) 16 Alanine Aminotransferase (ALT/SGPT) 7 L Alkaline Phosphatase 60 Total Protein 6.7 # Albumin 3.6 Globulin 3.10 Albumin/Globulin Ratio 1.16 Triglycerides Level 77 Cholesterol Level 142 LDL Cholesterol, Calculated 94 HDL Cholesterol 33 L Cholesterol/HDL Ratio 4.3 Thyroid Stimulating Hormone (TSH) 2.940 Free Thyroxine Index 3.84 Thyroxine (T4) 10.3 Triiodothyronine (T3) Uptake 37.3 Exam/Review of Systems Exam Vitals Vital Signs Date Temp Pulse Resp B/P (MAP) Pulse Ox O2 O2 Flow FiO2 Time Delivery Rate 04/08/19 82 16:00 04/08/19 98.2 19 123/62 95 Room Air 15:40 (82) Intake and Output 04/07/19 04/07/19 04/08/19 1515:00 23:00 07:00 IntakeIntake Total 1000 ml BalanceBalance 1000 ml Results Results 24hrs Laboratory Tests Test 04/07/19 17:30 04/08/19 04:56 Body Fluid Type PLEURAL FLUID Body Fluid Volume 975.0 Body Fluid Color SHANIQUA Body Fluid Appearance HAZY Body Fluid WBC 888 Body Fluid RBC (Auto) 00065 Body Fluid Polynuclear WBCs (%) 59.3 Body Fluid Mononuclear Cells % Auto 40.7 Body Fluid Glucose 107 Body Fluid Total Protein 5.3 Body Fluid Lactate Dehydrogenase 485 Body Fluid Amylase < 30 White Blood Count 8.0 Red Blood Count 3.40 L Hemoglobin 9.9 L Hematocrit 31.6 L Mean Corpuscular Volume 92.9 Mean Corpuscular Hemoglobin 29.1 Mean Corpuscular Hemoglobin Concent 31.3 L Red Cell Distribution Width 12.8 Platelet Count 489 H Mean Platelet Volume 9.5 Immature Granulocytes % 0.400 Neutrophils % 70.4 Lymphocytes % 15.9 Monocytes % 9.9 Eosinophils % 2.7 Basophils % 0.7 Nucleated Red Blood Cells % 0.0 Immature Granulocytes # 0.030 Neutrophils # 5.6 Lymphocytes # 1.3 Monocytes # 0.8 Eosinophils # 0.2 Basophils # 0.1 Nucleated Red Blood Cells # 0.0 Sodium Level 140 Potassium Level 3.8 Chloride Level 101 Carbon Dioxide Level 32 H Anion Gap 7 Blood Urea Nitrogen 15 Creatinine 0.96 Est Glomerular Filtrat Rate mL/min > 60 Glucose Level 107 Hemoglobin A1c 5.4 Calcium Level 9.1 Phosphorus Level 3.5 Magnesium Level 2.0 Total Bilirubin 0.3 Direct Bilirubin 0.00 Indirect Bilirubin 0.3 Aspartate Amino Transf (AST/SGOT) 16 Alanine Aminotransferase (ALT/SGPT) 7 L Alkaline Phosphatase 60 Total Protein 6.7 # Albumin 3.6 Globulin 3.10 Albumin/Globulin Ratio 1.16 Triglycerides Level 77 Cholesterol Level 142 LDL Cholesterol, Calculated 94 HDL Cholesterol 33 L Cholesterol/HDL Ratio 4.3 Thyroid Stimulating Hormone (TSH) 2.940 Free Thyroxine Index 3.84 Thyroxine (T4) 10.3 Triiodothyronine (T3) Uptake 37.3 Imaging Imaging PROCEDURE: XR Chest. CLINICAL INDICATION: Status post thoracentesis TECHNIQUE: Single portable view of the chest was obtained COMPARISON: DR CHEST 04/07/2019; SCAR CHEST 02/12/2019; CR CHEST 06/08/2015 FINDINGS: Status post thoracentesis with decreased left pleural effusion. No evidence of pneumothorax. The heart, lungs and mediastinum are otherwise unchanged. Moderate size left pleural effusion remains. Left lower lung atelectasis/infiltrate. Port-A-Cath tip terminates in the lower SVC. IMPRESSION: Status post thoracentesis with no evidence of pneumothorax. Moderate size left pleural effusion remains. RPTAT: QQ benigno Bonilla Physician Date Time Electronically viewed and signed by benigno Bonilla Physician on 04/08/2019 11:34 rV/ CC: VIOLA BONILLA MD [id number] Medications Medication Current Medications Amlodipine Besylate (Norvasc) 5 mg BID PO Last administered on 04/08/19at 08:13; Admin Dose 5 MG; Start 04/07/19 at 21:00 IV Flush (NS 3 ml) 3 ml PER PROTOCOL IV ; Start 04/07/19 at 15:00 Ondansetron HCl (Zofran Inj) 4 mg Q6H PRN IV NAUSEA/VOMITING; Start 04/07/19 at 15:00 Acetaminophen (Tylenol Tab) 650 mg Q6H PRN PO .PAIN 1-3 OR TEMP; Start 04/07/19 at 15:00 Acetaminophen (Tylenol Supp) 650 mg Q6H PRN [place] .PAIN 1-3 OR TEMP; Start 04/07/19 at 15:00 Acetaminophen/ Hydrocodone Bitart ([place] (5/325)) 1 tab Q6H PRN PO .MOD PAIN 4- 6 Last administered on 04/08/19at 05:33; Admin Dose 1 TAB; Start 04/07/19 at 15:00 Acetaminophen/ Hydrocodone Bitart ([place] (5/325)) 2 tab Q6H PRN PO .SEVERE PAIN 7-10 Last administered on 04/08/19at 11:59; Admin Dose 2 TAB; Start 04/07/19 at 15:00 Morphine Sulfate (morphine) 2 mg Q4H PRN IV .SEVERE PAIN 7-10; Start 04/07/19 at 15:00 Docusate Sodium (Colace) 100 mg Q12H PRN PO .CONSTIPATION; Start 04/07/19 at 15:00 Magnesium Hydroxide (Milk Of Mag) 30 ml DAILY PRN PO .CONSTIPATION; Start 04/07/19 at 15:00 Bisacodyl (Dulcolax Supp) 10 mg DAILY PRN [place] .CONSTIPATION; Start 04/07/19 at 15:00 Pantoprazole (Protonix Iv) 40 mg DAILY@06 IV Last administered on 04/08/19at 05:32; Admin Dose 40 MG; Start 04/08/19 at 06:00 Heparin Sodium (Porcine) (Heparin (5000 Units/1ml)) 5,000 unit Q12 SC Last administered on 04/08/19at 08:13; Admin Dose 5,000 UNIT; Start 04/07/19 at 21:00 Furosemide (Lasix) 20 mg DAILY IV Last administered on 04/08/19at 08:12; Admin Dose 20 MG; Start 04/08/19 at 09:00 QUINN GANDARA Apr 08, 2019 17:00
[2019-04-09] VITALS (7 sets, daily range): BP systolic 111–144; BP diastolic 64–75; PULSE 79–92; RESP 18–19
[2019-04-09] MEDS: HYDROCODONE/APAP (5/325) TAB PO PRN ×3 (01:32→12:57)
[2019-04-09] MEDS: PANTOPRAZOLE 40 MG INJ IV SCH (05:52)
[2019-04-09] MEDS: FUROSEMIDE 20 MG INJ IV SCH (08:23)
[2019-04-09] MEDS: AMLODIPINE 5 MG TAB PO SCH (08:24)
[2019-04-09] MEDS: HEPARIN 5,000 UNIT/1 ML VIAL SC SCH (08:31)
--- NOTE | 2019-04-09 09:43 | CONS ---
Assessment/Plan Assessment/Plan Assessment/Plan (Daily) Assessment recommendations; 1. Patient admitted with shortness of breath due to large left pleural effusion status post 2 thoracentesis serially. Pleural fluid cytology is pending. 2. History of colorectal cancer status post colostomy and RT and chemotherapy. Continue current supportive care. Pleural fluid cytology is pending. Consultation Date/Type/Reason Admit Date/Time Apr 07, 2019 at 13:38 Initial Consult Date 04/08/19 Type of Consult Pulmonary Patient is a very pleasant 63-year-old lady who came into the hospital with shortness of breath. Upon evaluation a chest x-ray was done which showed a very large left pleural effusion. Patient underwent left thoracentesis yesterday and about a liter of fluid was removed with significant improvement in shortness of breath. Patient denies any chest pain, coughing, wheezing, sputum production or hemoptysis. Any fever or chills. According to her she was fine until about a few days ago and the symptoms gradually started. Past medical history; 1. History of recent colorectal cancer, status post colostomy, status post radiation and chemotherapy. Cancer is stage III. 2. Hypertension. 3. Anemia. Medications; reviewed. Allergies; sulfa drugs. Social history; history of smoking in the past. Family history; she lives with her daughter. No history of malignancy. 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 Review of systems; denies any headache, seizures, visual changes, Chest pain, coughing, wheezing, sputum production or hemoptysis. Any fever or chills. Any abdominal pain, nausea vomiting. Any weight loss. Any skin changes or any arthritis symptoms. Denies any dysphasia. Shortness of breath has markedly improved after thoracentesis. General exam; elderly lady, awake alert, currently in no distress. Requesting Provider: BE PARDO Date/Time of Note DATE: 04/09/19 TIME: 09:42 24 HR Interval Summary Free Text/Dictation Patient's condition is stable. Denies any shortness of breath. Complains of very minimal left chest pain. General exam; elderly lady, awake alert, currently in no distress. Exam/Review of Systems Exam Vitals Vital Signs Date Temp Pulse Resp B/P (MAP) Pulse Ox O2 O2 Flow FiO2 Time Delivery Rate 04/09/19 98.1 80 18 111/64 98 08:32 (80) 04/08/19 Room Air 15:40 Intake and Output 04/08/19 04/08/19 04/09/19 1515:00 23:00 07:00 IntakeIntake Total 1400 ml 250 ml BalanceBalance 1400 ml 250 ml Exam H EENT exam; supple neck, no JVD. No lymphadenopathy. Midline trachea. No thyromegaly. Patient has fair dentition. No neck masses. Chest exam; diminished breath sounds left lower lobe. Rest of the lung loaiza are clear. S1-S2 audible, no murmurs. Regular rhythm. Abdomen exam; soft, colostomy in place. Nontender. No organomegaly. Bowel sounds audible. Extremity exam; no peripheral edema clubbing. CONCRETE SPREADER exam; no focal deficit. Results Result Diagram: 04/08/196 04/08/196 Medications Medication Current Medications Amlodipine Besylate (Norvasc) 5 mg BID PO Last administered on 04/09/19at 08:24; Admin Dose 5 MG; Start 04/07/19 at 21:00 IV Flush (NS 3 ml) 3 ml PER PROTOCOL IV ; Start 04/07/19 at 15:00 Ondansetron HCl (Zofran Inj) 4 mg Q6H PRN IV NAUSEA/VOMITING; Start 04/07/19 at 15:00 Acetaminophen (Tylenol Tab) 650 mg Q6H PRN PO .PAIN 1-3 OR TEMP; Start 04/07/19 at 15:00 Acetaminophen (Tylenol Supp) 650 mg Q6H PRN [place] .PAIN 1-3 OR TEMP; Start 04/07/19 at 15:00 Acetaminophen/ Hydrocodone Bitart ([place] (5/325)) 1 tab Q6H PRN PO .MOD PAIN 4- 6 Last administered on 04/08/19at 05:33; Admin Dose 1 TAB; Start 04/07/19 at 15:00 Acetaminophen/ Hydrocodone Bitart ([place] (5/325)) 2 tab Q6H PRN PO .SEVERE PAIN 7-10 Last administered on 04/09/19at 07:01; Admin Dose 2 TAB; Start 04/07/19 at 15:00 Morphine Sulfate (morphine) 2 mg Q4H PRN IV .SEVERE PAIN 7-10; Start 04/07/19 at 15:00 Docusate Sodium (Colace) 100 mg Q12H PRN PO .CONSTIPATION; Start 04/07/19 at 15:00 Magnesium Hydroxide (Milk Of Mag) 30 ml DAILY PRN PO .CONSTIPATION; Start 04/07/19 at 15:00 Bisacodyl (Dulcolax Supp) 10 mg DAILY PRN [place] .CONSTIPATION; Start 04/07/19 at 1 5:00 Pantoprazole (Protonix Iv) 40 mg DAILY@06 IV Last administered on 04/09/19at 05:52; Admin Dose 40 MG; Start 04/08/19 at 06:00 Heparin Sodium (Porcine) (Heparin (5000 Units/1ml)) 5,000 unit Q12 SC Last administered on 04/09/19at 08:31; Admin Dose 5,000 UNIT; Start 04/07/19 at 21:00 Furosemide (Lasix) 20 mg DAILY IV Last administered on 04/09/19at 08:23; Admin Dose 20 MG; Start 04/08/19 at 09:00 BABATUNDE MASTERS Apr 09, 2019 09:43
[2019-04-09] MEDS ORDERED: FURO-110 PO (12:49)
--- NOTE | 2019-04-09 12:51 | PDOCDIS ---
Discharge Instructions CONDITION [id number] Patient Condition: [id number] Stable HOME CARE INSTRUCTIONS: [id number] Diet Instructions: [id number] Low Fat /Cholesterol ACTIVITY: [id number] Activity Restrictions: [id number] Slowly Increase Activity Rest between Activity FOLLOW UP/APPOINTMENTS Follow-up Plan Follow-up with Dr. Haider as per her instructions. She is working to set you up for immunotherapy. She will also discussed the pleural fluid cytology results with you. Name, Degree: Emilie Haider MD Specialty: Oncology, Hematology Comments: Office Address: [address] [place] [address] Office or [phone] (after hours) Office I have given you a prescription for oral Lasix, you still have some fluid in your lungs, if you get short of breath, you can use 1 tablet twice a day as n eeded only. Please notify either your primary care provider or your oncologist as soon as possible about the symptoms. Or you may go to the nearest emergency room. QUINN GANDARA Apr 09, 2019 12:51
--- NOTE | 2019-04-09 12:57 | DS ---
Date/Time of Note Date/Time of Note DATE: 04/09/19 TIME: 12:54 Discharge Summary Admission/Discharge Info Admit Date/Time Apr 07, 2019 at 13:38 Discharge Date/Time Discharge Diagnosis assessment and plan: 1. Dyspnea secondary to pleural effusion: resolved - s/p thoracentesis x 2 04/07/19 and 04/08/19 with 1000cc and 1500 cc drained respectively -CXR still showing moderate effusion, may need Pleurx catheter in the long run, patient prefers to defer at this time 2. STAGE III Anal Cancer History of rectal cancer with previous rectal cancer surgery. -per Oncology, -PET CT from 04/06/2019 already reveals recurrence to the pleura, left sided pleural effusion, labia,inguinal LN -given the rapid spread of this tumor that has progressed through [place] based chemotherapy, we will need to start immunotherapy [place]. -Will also send to [facility], Dr. Hong Garza for a second opinion and consideration of clinical trial given the given the aggressive nature of this disease. -We will start Keytruda 200 mg IV for 3 weeks as outpatient 3. Essential hypertension. -improved control on current meds 4. Anemia. -stable 5. Chronic RA -stable, continue to monitor . Patient Condition: Stable Consults Pulmonary: Anselmo Jeffers MD Oncology: Emilie Haider MD . Procedures See hospital course . Hospital Course 63-year-old female with stage III anal cancer with previous rectal cancer surgery colostomy placement with evidence of rapid spread despite chemotherapy to recurrence to pleura, labia and inguinal lymphadenopathy. She presented to the emergency room with significant dyspnea and was found to have complete left lizzy-opacification secondary to pleural effusion. Patient required 2 sessions of thoracentesis, first April 07, 2019 and second April 08, 2019 with removal of 1 L and 1.5 L respectively. Post thoracentesis on April 08 continues to show moderate effusion. There was concern for possible left lower lung infiltrate, but patient had no signs or symptoms of infection. I did kind of brace the idea of a possible Pleurx catheter for persistent effusion, but the patient wanted to make sure that pleural effusion was as a result of anal cancer and wants to see the cytology results first, also as she was clinically comfortable she wanted to defer if necessary only. This is a sensible plan, she will follow-up with her oncologist who will discuss cytology results, and if patient has recurrence of respiratory failure and pleural effusion causing symptoms, she can at that time be evaluated for Pleurx catheter placement. Also pulmonary did not feel antibiotic therapy or Lasix therapy was indicated. The plan is also to possibly send the patient to [facility] for second opinion and consideration of clinical trial. Patient's other comorbidities were monitored and managed without significant intervention, at this time she is ambulance, shortness of breath is completely resolved, she has been cleared for discharge from both oncology and pulmonary standpoint. . Home Meds Reported Medications Hydrocodone/Acetaminophen ([place] 10-325 Tablet) 1 Each Tablet, 1 EACH PO Q6H, TAB 04/07/19 Amlodipine Besylate* (Norvasc*) 5 Mg Tablet, 5 MG PO BID, TAB 04/07/19 Follow-up Plan Follow-up with Dr. Haider as per her instructions. She is working to set you up for immunotherapy. She will also discussed the pleural fluid cytology results with you. Name, Degree: Emilie Haider MD Specialty: Oncology, Hematology Comments: Office Address: [address] [place] [address] Office or [phone] (after hours) Office I have given you a prescription for oral Lasix, you still have some fluid in your lungs, if you get short of breath, you can use 1 tablet twice a day as needed only. Please notify either your primary care provider or your oncologist as soon as possible about the symptoms. Or you may go to the nearest emergency room. Primary Care Provider Not On Staff Doctor Time spent on discharge: > 30 minutes QUINN GANDARA Apr 09, 2019 12:57
--- NOTE | 2019-04-09 13:03 | CONS ---
Assessment/Plan Assessment/Plan Hospital Course (Demo Recall) #STAGE III Anal Cancer -PET CT from 04/06/2019 already reveals recurrence to the pleura, left sided pleural effusion, labia,inguinal LN -given the rapid spread of this tumor that has PROGRESSED THROUGH [place] BASED CHEMOTHERAPY, WE WILL NEED TO START IMMUNOTHERAPY ASHIA. WILL ALSO SEND TO [facility], DR. KRYS ARRINGTON FOR A SECOND OPNION AND CONSIDERATION OF CLINICAL TRIAL GIVEN THE AGRESSIVE NATURE OF THIS DISEASE. -WILL START KEYTRUDA 200MG IV 3 WEEKS as an out patient #SOB -2/2 pleural effusion -s/p thoracentesis x 2 #RA -stable, continue to monitor -continue management per Rheumatology and PMD ok for dc from hematology standpoint Thank you for the opportunity to participate in this patients care A total of 40 minutes of face to face time was spent speaking with the patient, of which greater than 50% was spent in counseling and coordination of care and the detailed question and answer session. Consultation Date/Type/Reason Admit Date/Time Apr 07, 2019 at 13:38 Initial Consult Date 04/08/19 Type of Consult oncology Reason for Consultation metastatic anal cancer Requesting Provider: BE PARDO Date/Time of Note DATE: 04/09/19 TIME: 13:02 24 HR Interval Summary Free Text/Dictation s/p thoracentesis. SOB improved Exam/Review of Systems Exam Vitals Vital Signs Date Temp Pulse Resp B/P (MAP) Pulse Ox O2 O2 Flow FiO2 Time Delivery Rate 04/09/19 79 12:01 04/09/19 98.0 19 132/69 98 Room Air 11:13 (90) Intake and Output 04/08/19 04/08/19 04/09/19 1515:00 23:00 07:00 IntakeIntake Total 1400 ml 250 ml BalanceBalance 1400 ml 250 ml Constitutional: alert, oriented Psych: no complaints Head: normocephalic Eyes: nl conjunctiva ENMT: nl external ears & nose Neck: supple Respiratory: other (decreased BS in left lung) Cardiovascular: regular rate and rhythm Gastrointestinal: soft Musculoskeletal: nl extremities to inspection Results Result Diagram: 04/08/19 0456 04/08/19 0456 Medications Medication Current Medications Amlodipine Besylate (Norvasc) 5 mg BID PO Last administered on 04/09/19at 08:24; Admin Dose 5 MG; Start 04/07/19 at 21:00 IV Flush (NS 3 ml) 3 ml PER PROTOCOL IV ; Start 04/07/19 at 15:00 Ondansetron HCl (Zofran Inj) 4 mg Q6H PRN IV NAUSEA/VOMITING; Start 04/07/19 at 15:00 Acetaminophen (Tylenol Tab) 650 mg Q6H PRN PO .PAIN 1-3 OR TEMP; Start 04/07/19 at 15:00 Acetaminophen (Tylenol Supp) 650 mg Q6H PRN [place] .PAIN 1-3 OR TEMP; Start 04/07/19 at 15:00 Acetaminophen/ Hydrocodone Bitart ([place] (5/325)) 1 tab Q6H PRN PO .MOD PAIN 4- 6 Last administered on 04/08/19at 05:33; Admin Dose 1 TAB; Start 04/07/19 at 15:00 Acetaminophen/ Hydrocodone Bitart ([place] (5/325)) 2 tab Q6H PRN PO .SEVERE PAIN 7-10 Last administered on 04/09/19at 12:57; Admin Dose 2 TAB; Start 04/07/19 at 15:00 Morphine Sulfate (morphine) 2 mg Q4H PRN IV .SEVERE PAIN 7-10; Start 04/07/19 at 15:00 Docusate Sodium (Colace) 100 mg Q12H PRN PO .CONSTIPATION; Start 04/07/19 at 15:00 Magnesium Hydroxide (Milk Of Mag) 30 ml DAILY PRN PO .CONSTIPATION; Start 04/07/19 at 15:00 Bisacodyl (Dulcolax Supp) 10 mg DAILY PRN [place] .CONSTIPATION; Start 04/07/19 at 15:00 Pantoprazole (Protonix Iv) 40 mg DAILY@06 IV Last administered on 04/09/19at 05:52; Admin Dose 40 MG; Start 04/08/19 at 06:00 Heparin Sodium (Porcine) (Heparin (5000 Units/1ml)) 5,000 unit Q12 SC Last administered on 04/09/19at 08:31; Admin Dose 5,000 UNIT; Start 04/07/19 at 21:00 Furosemide (Lasix) 20 mg DAILY IV Last administered on 04/09/19at 08:23; Admin Do se 20 MG; Start 04/08/19 at 09:00 DORIS MILLER M.D. Apr 09, 2019 13:03
== END 2019-04-09 13:13 | disposition home or self-care (01) | DRG 187 ==
LOC: E/R 12:02 → 6WM 13:38 → CANRESERV 16:51 → 6WM 04-08 02:41
PROVIDERS: ADMIT Internal Medicine; ATTEND Internal Medicine
PROC: 0W9B3ZZ Drainage of Left Pleural Cavity, Percutaneous Approach (ICD-10-PCS; principal; 2019-04-07)
PROC: 0W9B3ZZ Drainage of Left Pleural Cavity, Percutaneous Approach (ICD-10-PCS; 2019-04-08)
DX: J90 Pleural effusion, not elsewhere classified (principal); C78.2 Secondary malignant neoplasm of pleura; C78.5 Secondary malignant neoplasm of large intestine and rectum; C20 Malignant neoplasm of rectum; C77.4 Secondary and unspecified malignant neoplasm of inguinal and lower limb lymph nodes; C79.89 Secondary malignant neoplasm of other specified sites; M06.9 Rheumatoid arthritis, unspecified; I10 Essential (primary) hypertension; D64.9 Anemia, unspecified; Z93.3 Colostomy status
CPT/HCPCS: 32555; 36415; 71045; 76942; 80053; 80061; 81003; 82150; 82945; 83036; 83615; 83690; 83735; 83986; 84100; 84157; 84436; 84443; 84479; 84484; 85025; 85610; 85730; 88104; 88305; 89051; 93306; 96374; C9113; J1644; J1940; J7030; J7040

== ENCOUNTER 2019-05-04 12:53 | Inpatient (IN) | payer OTHER ==
[~2019-05-04] VITALS: Ht 175.3 cm; Wt 99.7 kg
[~2019-05-04 12:53] MED LIST: AMLO5TAB4 PO; FURO-110 PO; HYDR-3980 PO
--- NOTE | 2019-05-04 13:37 | ERD ---
ER Documentation Chief Complaint Chief Complaint left side plueral effusion sent by pmd, speaking full sentences HPI This is a 62-year-old female presents for evaluation of a left-sided pleural effusion. She has history of anal cancer, she is currently on chemotherapy, she had a thoracentesis performed last month in April, she was scheduled to have a thoracentesis done on May 13, however she has symptomatically felt more pain and shortness of breath, and was sent in by her oncologist, Dr. Haider. She denies fever, her symptoms are constant ROS All systems reviewed and are negative except as per history of present illness. Medications Home Meds Active Scripts Furosemide* (Lasix*) 20 Mg Tablet, 20 MG PO BID PRN for sob and swelling, #14 TAB Prov:NICHOLQUINN Morillo 04/09/19 Reported Medications Hydrocodone/Acetaminophen ([place] 10-325 Tablet) 1 Each Tablet, 1 EACH PO Q6H, T AB 04/07/19 Amlodipine Besylate* (Norvasc*) 5 Mg Tablet, 5 MG PO BID, TAB 04/07/19 Allergies Allergies: Coded Allergies: Sulfa (Sulfonamide Antibiotics) (Verified Allergy, Intermediate, rash, 04/07/19) PMhx/Soc History of Surgery: Yes (colorectal surgery W/ COLOSTOMY) Anesthesia Reaction: No Hx Neurological Disorder: No Hx Respiratory Disorders: No Hx Cardiac Disorders: Yes (HTN) Hx Psychiatric Problems: No Hx Miscellaneous Medical Probl: Yes (ANAL CANCER STAGE 3 WITH METS) Hx Alcohol Use: No Hx Substance Use: No Hx Tobacco Use: No Smoking Status: Never smoker Physical Exam Vitals Vital Signs Date Temp Pulse Resp B/P (MAP) Pulse Ox O2 O2 Flow FiO2 Time Delivery Rate 05/04/19 98.6 112 20 150/94 98 13:00 (112) Physical Exam Const: No acute distress Head: Atraumatic Eyes: Normal Conjunctiva ENT: Normal External Ears, Nose and Mouth. Neck: Full range of motion. No meningismus. Resp: Breath sounds are diminished on both sides Cardio: Regular rate and rhythm, no murmurs Abd: Soft, non tender, non distended. Normal bowel sounds Skin: No petechiae or rashes Back: No midline or flank tenderness Ext: No cyanosis, or edema Neur: Awake and alert Psych: Normal Mood and Affect Results 24 hrs Current Medications Medications Dose Sig/Svetlana Start Time Status Last (Trade) Ordered Route PRN Stop Time Admin Dose Reason Admin Ondansetron 4 mg ER BRIDGE 05/04/19 HCl (Zofran PRN IV 14:00 05/05/19 Inj) NAUSEA/VOMITI 13:59 NG 650 mg ER BRIDGE 05/04/19 Acetaminophen PRN PO 14:00 05/05/19 (Tylenol .MILD PAIN 13:59 Tab) 1-3 OR TEMP Procedures/MDM This is a 62-year-old female presents for evaluation of shortness of breath. Her symptoms are most likely related to her pleural effusion, and she was sent for admission for symptomatic shortness of breath. Patient declined labs and chest x-ray, stating that she had them recently, and mainly came in for a pleural effusion. She will be admitted for thoracentesis and management. Accepting Care Team: Current data and ongoing care discussed. Primary: Alexey Consulting: Vitaly Outstanding Data: none EKG: Rate/Rhythm: Normal Sinus Rhythm QRS, ST, T-waves: No changes consistent w/ acute ischemia Impression: No evidence of ischemia or arrhythmia Departure Diagnosis: Primary Impression: Shortness of breath Additional Impression: Pleural effusion Condition: Stable THOMAS ATKINSON MD May 04, 2019 13:37
[2019-05-04] MEDS ORDERED: METO10TA3 PO (13:43)
[2019-05-04] MEDS ORDERED: HYDR-3980 PO (13:43)
[2019-05-04] MEDS ORDERED: ONDANSETRON 4 MG INJ IV PRN (14:00)
[2019-05-04] MEDS ORDERED: ACETAMINOPHEN 325 MG TAB PO PRN ×2 (14:00→15:30)
[2019-05-04] MEDS ORDERED: NACL 0.9% 3 ML SYG IV SCH (15:30)
[2019-05-04] MEDS ORDERED: morphine 2 MG INJ IV PRN (15:30)
[2019-05-04] MEDS ORDERED: HYDROCODONE/APAP (5/325) TAB PO PRN (15:30)
[2019-05-04] MEDS: HYDROCODONE/APAP (10/325) TAB PO PRN ×2 (16:54→21:05)
--- NOTE | 2019-05-04 17:02 | HP ---
Date/Time of Note Date/Time of Note DATE: 05/04/19 TIME: 16:54 Assessment/Plan VTE Prophylaxis SCD applied (from Nsg): Yes Pharmacological prophylaxis: NA/contraindicated Pharm contraindication: low risk/ambulating Lines/Catheters IV Catheter Type (from Nrsg): Saline Lock Assessment/Plan Hospital Course Assessment and plan 1. Dyspnea secondary to malignant pleural effusion. - Plan for thoracentesis. - Gold Marker and oncologist notified. - Discussed possible option for diuretics however patient deferring at this time. Follow-up 2. History of rectal cancer with previous rectal cancer surgery. - Patient's oncologist notified. - Follow-up with her conditions. 3. Hypertension. - Will adjust antihypertensives. Monitor for now. 4. Anemia. - H&H remained stable at present. - Monitor trend. Follow-up on ferritin level. 5. Elevated BNP. - Patient's most recent echo done on April 07, 2019 with EF of 55 to 60% with stage II diastolic dysfunction. - Continue medical optimization. - Consider repeat echo should patient's breathing worsen 6. Dyslipidemia. -Continue on fish oil Discussed POC with Alexey Result Diagram: 05/04/19 1351 05/04/19 1351 Results 24hrs Laboratory Tests Test 05/04/19 13:51 05/04/19 13:56 05/04/19 15:17 White Blood Count 6.1 # Red Blood Count 2.94 L Hemoglobin 8.0 L Hematocrit 25.7 L Mean Corpuscular Volume 87.4 Mean Corpuscular Hemoglobin 27.2 L Mean Corpuscular Hemoglobin Concent 31.1 L Red Cell Distribution Width 13.8 Platelet Count 508 H Mean Platelet Volume 8.7 Immature Granulocytes % 0.200 Neutrophils % 63.4 Lymphocytes % 21.6 Monocytes % 13.3 H Eosinophils % 1.0 Basophils % 0.5 Nucleated Red Blood Cells % 0.0 Immature Granulocytes # 0.010 Neutrophils # 3.9 Lymphocytes # 1.3 Monocytes # 0.8 Eosinophils # 0.1 Basophils # 0.0 Nucleated Red Blood Cells # 0.0 Prothrombin Time 12.8 Prothrombin Time Ratio 1.0 INR International Normalized Ratio 0.95 Sodium Level 139 Potassium Level 4.0 Chloride Level 97 Carbon Dioxide Level 29 Anion Gap 13 Blood Urea Nitrogen 9 Creatinine 0.69 Est Glomerular Filtrat Rate mL/min > 60 Glucose Level 105 Calcium Level 10.0 Total Bilirubin 0.3 Direct Bilirubin 0.00 Indirect Bilirubin 0.3 Aspartate Amino Transf (AST/SGOT) 22 Alanine Aminotransferase (ALT/SGPT) 11 L Alkaline Phosphatase 77 Troponin I < 0.012 B-Type Natriuretic Peptide 166 H Total Protein 8.3 H Albumin 4.3 Globulin 4.00 H Albumin/Globulin Ratio 1.07 POC Venous Lactate 1.2 Lactic Acid Level 1.0 HPI/ROS Admit Date/Time Admit Date/Time Hx of Present Illness This is a 63-year-old female with history of anal cancer with reported labial metastasis who came to the hospital due to reports of increased shortness of breath. Patient reportedly was scheduled for thoracentesis on May 18 for recurrent malignant effusion is. However she reports that she had increased shortness of breath and as such was advised to return to the hospital for thoracentesis by her oncologist. Patient was noted with diminished lung sounds on left lung field. She denies any cough or fever but does report increased shortness of breath for several days prior to admission with more dyspnea noted on exertion. She does report that she does follow-up with her oncologist Dr. Haider for chemotherapy and has been compliant with regimen. No other specific complaints noted at this time. We will evaluate her for the aformentiond issues . ROS 12 point review of systems obtained and entirely negative except that mentioned in the history of present illness PMH/Family/Social Past Medical History 1. Hypertension 2. Rectal cancer 3. Rectal cancer surgery on February 18, 2019 with colostomy placed 4. Suspect metastasis to the right groin (labial area) recurring tumor Medications Current Medications Ondansetron HCl (Zofran Inj) 4 mg ER BRIDGE PRN IV NAUSEA/VOMITING; Start 05/04/19 at 14:00; Stop 05/05/19 at 13:59 Amlodipine Besylate (Norvasc) 5 mg BID PO ; Start 05/04/19 at 21:00 Metoclopramide HCl (Reglan) 10 mg TID PRN PO NAUSEA AND/OR VOMITING; Start 05/04/19 at 15:30 Clonidine (Catapres) 0.1 mg Q4H PRN PO sbp>160; Start 05/04/19 at 15:30 IV Flush (NS 3 ml) 3 ml PER PROTOCOL IV ; Start 05/04/19 at 15:30 Acetaminophen (Tylenol Tab) 650 mg Q6H PRN PO .PAIN 1-3 OR TEMP; Start 05/04/19 at 15:30 Acetaminophen/ Hydrocodone Bitart ([place] (5/325)) 1 tab Q6H PRN PO .MOD PAIN 4- 6; Start 05/04/19 at 15:30 Morphine Sulfate (morphine) 2 mg Q4H PRN IV .SEVERE PAIN 7-10; Start 05/04/19 at 15:30 Famotidine (Pepcid) 20 mg Q12 PO ; Start 05/04/19 at 21:00 Acetaminophen/ Hydrocodone Bitart ([place] (10/325)) 1 tab Q4H PRN PO PAIN; Start 05/04/19 at 17:00 Coded Allergies: Sulfa (Sulfonamide Antibiotics) (Verified Allergy, Intermediate, rash, 05/04/19) Family History Significant Family History: no pertinent family hx, other Social History Alcohol Use: none Smoking Status: Never smoker Drug Use: none Exam/Review of Systems Vital Signs Vitals Vital Signs Date Temp Pulse Resp B/P (MAP) Pulse Ox O2 O2 Flow FiO2 Time Delivery Rate 05/04/19 105 18 162/85 98 Room Air 15:32 (110) 05/04/19 98.6 13:00 Exam Constitutional: alert, oriented Psych: nl mood/affect Head: normocephalic Eyes: nl conjunctiva Neck: supple, non-tender Respiratory: diminished breath sounds ( left lung field) Cardiovascular: other (Regular rate to tachycardic) Gastrointestinal: soft, non-tender Genitourinary - Female: other (Noted with right labial lesion) Musculoskeletal: nl extremities to inspection Neurological: ADMISSION NURSE II-XII intact, nl mental status, nl speech REGIDORBREANNE GREEN CHAINER May 04, 2019 17:02
[2019-05-04 19:07] VITALS: BP 180/92; PULSE 106; RESP 19
[2019-05-04 19:53] VITALS: Ht 175.3 cm; Wt 99.7 kg
[2019-05-04] MEDS: FISH OIL 1,000 MG CAP PO SCH (20:07)
[2019-05-04] MEDS: METOCLOPRAMIDE 10 MG TAB PO PRN (20:07)
[2019-05-04] MEDS: AMLODIPINE 5 MG TAB PO SCH (20:08)
[2019-05-04] MEDS: FAMOTIDINE 20 MG TAB PO SCH (20:08)
[2019-05-04 23:03] VITALS: BP 157/74; PULSE 111; RESP 19
[2019-05-05] MEDS: HYDROCODONE/APAP (10/325) TAB PO PRN ×6 (01:00→20:58)
[2019-05-05 04:09] VITALS: BP 140/70; PULSE 98; RESP 19
[2019-05-05] MEDS: METOCLOPRAMIDE 10 MG TAB PO PRN ×3 (06:11→16:51)
[2019-05-05 07:25] VITALS: BP 164/87; PULSE 97; RESP 20
[2019-05-05] MEDS: FISH OIL 1,000 MG CAP PO SCH ×2 (09:00→20:57)
[2019-05-05] MEDS: FAMOTIDINE 20 MG TAB PO SCH ×2 (09:00→20:57)
[2019-05-05] MEDS: AMLODIPINE 5 MG TAB PO SCH ×2 (09:01→20:58)
--- NOTE | 2019-05-05 11:19 | CONS ---
Assessment/Plan Assessment/Plan Hospital Course (Demo Recall) #Metastatic Anal Cancer -PET CT from 04/06/2019 already reveals recurrence to the pleura, left sided pleural effusion, labia,inguinal LN -given the rapid spread of this tumor, pt was started on chemo per the following regimen: Carboplatin AUC 6 Taxol 175mg/m2 q 3 weeks -continue on cycle 2 05/15/19 #Pleural effusion -2/2 to malignancy and pleural involvement -agree with thoracentesis -patient's chemotherapy should eventually help prevent further reaccumulation of fluid #RA -stable, continue to monitor -continue management per Rheumatology and PMD #HTN -BP 162/79, pain and anxiety might be the reason for increased BP at this time. Denies chest pain or palpitations. -management per PMD -continue management per PMD Thank you for the opportunity to participate in this patients care A total of 40 minutes of face to face time was spent speaking with the patient, of which greater than 50% was spent in counseling and coordination of care and the detailed question and answer session. Consultation Date/Type/Reason Admit Date/Time May 04 Date of Consultation: May 05, 2019 Type of Consult oncology Reason for Consultation metastatic anal cancer Requesting Provider: EDELMIRA BACON Date/Time of Note DATE: 05/05/19 TIME: 11:12 Hx of Present Illness 62 yo female with metastatic anal cancer. 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 06/04/[address] was done which revealed metabolically active distal rectal/ anal wall thickening , related to primary anal ca. also seen is a thymoma as well as a enlarged metabolically active right inguinal LN 07/08/18-08/22/18: received Cycle 1, Day 1 of the Mitomycin/5-FU regimen with RADIATION 11/2018 pt revealed the L groin nodule that she states was growing while on tolowa dee-ni' based chemo and radiation 11/17/[address] demonstrates decrease in intensity and size of the anal hypermetabolic mass and righ inguinal LN. A new right upper thigh nodule is noted measuring 2.5 cm with SUV 8.2. Pt had this nodule removed on this day. path consistent with squamous cell carcinoma 12/30/18 pt now noted to have recurrence in anus and a thigh mass growing again 01/09/[address] reveals 3 cm anterior mediastinal mass representing thymic tissue. Right lateral anal wall has a mass now SUV 11 from 7.2 and a 1.8cm soft tissue nodule in the right inner thigh/ inferior aspect of right labia representing recurrent tumor 02/17/19 underwent tumor resection and had diverting ostomy placed by Dr. Khalil 04/06/[address] now reveals new pleural disease with a Left sided pleural effusion. Pt also demonstrated a new lesion in the right labia. PT was admitted to [facility] where she underwent thoracentesis x 2 05/04/2019 pt now c/o increased SOB than last week. Outpatient thoracentesis is scheduled for 05/13/19. 04/15/19 received 1st dose of carboplatin and taxol. Currently 05/04/19 -pt admitted for recurrent pleural effusion. can barely walk due to shortness of breath Constitutional: diaphoresis, poor po Eyes: no complaints ENT: no complaints Respiratory: pain, cough, pleuritic pain, shortness of breath Cardiovascular: chest pain, lightheadedness, palpitations Gastrointestinal: decreased appetite Genitourinary: no complaints Musculoskeletal: back pain, bone/joint pain Skin: no complaints Neurologic: no complaints Endocrine: no complaints Past Medical History HTN RA heart murmur Home Meds Reported Medications Metoclopramide Hcl* (Metoclopramide Hcl*) 10 Mg Tablet, 10 MG PO TID PRN for NAUSEA AND OR VOMITING, TAB 05/04/19 Hydrocodone/Acetaminophen ([place] 10-325 Tablet) 1 Each Tablet, 1 EACH PO Q4 PRN for PAIN, TAB 05/04/19 Amlodipine Besylate* (Norvasc*) 5 Mg Tablet, 5 MG PO BID, TAB 04/07/19 Discontinued Reported Medications Hydrocodone/Acetaminophen ([place] 10-325 Tablet) 1 Each Tablet, 1 EACH PO Q6H, TAB 04/07/19 Discontinued Scripts Furosemide* (Lasix*) 20 Mg Tablet, 20 MG PO BID PRN for sob and swelling, #14 TAB Prov:QUINN GANDARA 04/09/19 Medications Current Medications Amlodipine Besylate (Norvasc) 5 mg BID PO Last administered on 05/05/19at 09:01; Admin Dose 5 MG; Start 05/04/19 at 21:00 Metoclopramide HCl (Reglan) 10 mg TID PRN PO NAUSEA AND/OR VOMITING Last administered on 05/05/19at 06:11; Admin Dose 10 MG; Start 05/04/19 at 15:30 Clonidine (Catapres) 0.1 mg Q4H PRN PO sbp>160; Start 05/04/19 at 15:30 IV Flush (NS 3 ml) 3 ml PER PROTOCOL IV ; Start 05/04/19 at 15:30 Acetaminophen (Tylenol Tab) 650 mg Q6H PRN PO .PAIN 1-3 OR TEMP; Start 05/04/19 at 15:30 Acetaminophen/ Hydrocodone Bitart ([place] (5/325)) 1 tab Q6H PRN PO .MOD PAIN 4- 6; Start 05/04/19 at 15:30 Morphine Sulfate (morphine) 2 mg Q4H PRN IV .SEVERE PAIN 7-10; Start 05/04/19 at 15:30 Famotidine (Pepcid) 20 mg Q12 PO Last administered on 05/05/19at 09:00; Admin Dose 20 MG; Start 05/04/19 at 21:00 Acetaminophen/ Hydrocodone Bitart ([place] (10/325)) 1 tab Q4H PRN PO PAIN Last administered on 05/05/19at 09:00; Admin Dose 1 TAB; Start 05/04/19 at 17:00 Fish Oil (Fish Oil) 1,000 mg BID PO Last administered on 05/05/19at 09:00; Admin Dose 1,000 MG; Start 05/04/19 at 21:00 Allergies: Coded Allergies: Sulfa (Sulfonamide Antibiotics) (Verified Allergy, Intermediate, rash, 05/04/19) Past Surgical History per HPI Family History Significant Family History: no pertinent family hx Social History Alcohol Use: none Smoking Status: Never smoker Drug Use: none Exam/Review of Systems Exam Vitals Vital Signs Date Temp Pulse Resp B/P (MAP) Pulse Ox O2 O2 Flow FiO2 Time Delivery Rate 05/05/19 98.6 97 20 164/87 98 Room Air 07:25 (112) Constitutional: alert, oriented, distress, frail Psych: nl mood/affect, anxiety Head: normocephalic Eyes: nl conjunctiva ENMT: nl external ears & nose Neck: supple Respiratory: crackles/rales, diminished breath sounds, intercostal retraction, labored breathing Cardiovascular: regular rate and rhythm Gastrointestinal: soft Musculoskeletal: nl extremities to inspection Extremities: normal pulses Results Result Diagram: 05/05/19 0611 05/05/19 0612 Results 24hrs Laboratory Tests Test 05/04/19 13:51 05/04/19 13:56 05/04/19 15:17 05/04/19 17:27 White Blood Count 6.1 # Red Blood Count 2.94 L Hemoglobin 8.0 L Hematocrit 25.7 L Mean Corpuscular Volume 87.4 Mean Corpuscular 27.2 L Hemoglobin Mean Corpuscular 31.1 L Hemoglobin Concent Red Cell Distribution 13.8 Width Platelet Count 508 H Mean Platelet Volume 8.7 Immature Granulocytes % 0.200 Neutrophils % 63.4 Lymphocytes % 21.6 Monocytes % 13.3 H Eosinophils % 1.0 Basophils % 0.5 Nucleated Red Blood 0.0 Cells % Immature Granulocytes # 0.010 Neutrophils # 3.9 Lymphocytes # 1.3 Monocytes # 0.8 Eosinophils # 0.1 Basophils # 0.0 Nucleated Red Blood 0.0 Cells # Prothrombin Time 12.8 Prothrombin Time Ratio 1.0 INR International 0.95 Normalized Ratio Sodium Level 139 Potassium Level 4.0 Chloride Level 97 Carbon Dioxide Level 29 Anion Gap 13 Blood Urea Nitrogen 9 Creatinine 0.69 Est Glomerular Filtrat > 60 Rate mL/min Glucose Level 105 Calcium Level 10.0 Total Bilirubin 0.3 Direct Bilirubin 0.00 Indirect Bilirubin 0.3 Aspartate Amino 22 Transf (AST/SGOT) Alanine 11 L Aminotransferase (ALT/SG PT) Alkaline Phosphatase 77 Troponin I < 0.012 B-Type Natriuretic 166 H Peptide Total Protein 8.3 H Albumin 4.3 Globulin 4.00 H Albumin/Globulin Ratio 1.07 POC Venous Lactate 1.2 Lactic Acid Level 1.0 0.9 Test 05/05/19 06:11 05/05/19 06:12 White Blood Count 5.1 Red Blood Count 2.88 L Hemoglobin 7.6 L Hematocrit 24.8 L Mean Corpuscular Volume 86.1 Mean Corpuscular 26.4 L Hemoglobin Mean Corpuscular 30.6 L Hemoglobin Concent Red Cell Distribution 13.9 Width Platelet Count 548 H Mean Platelet Volume 9.1 Immature Granulocytes % 0.400 Neutrophils % 55.5 Lymphocytes % 24.4 Monocytes % 17.9 H Eosinophils % 1.2 Basophils % 0.6 Nucleated Red Blood 0.0 Cells % Immature Granulocytes # 0.020 Neutrophils # 2.8 Lymphocytes # 1.2 Monocytes # 0.9 Eosinophils # 0.1 Basophils # 0.0 Nucleated Red Blood 0.0 Cells # Hemoglobin A1c 5.7 Ferritin 254.0 Sodium Level 141 Potassium Level 3.8 Chloride Level 100 Carbon Dioxide Level 29 Anion Gap 12 Blood Urea Nitrogen 11 Creatinine 0.66 Est Glomerular Filtrat > 60 Rate mL/min Glucose Level 104 Calcium Level 9.8 Phosphorus Level 3.8 Magnesium Level 1.9 Total Bilirubin 0.3 Direct Bilirubin 0.00 Indirect Bilirubin 0.3 Aspartate Amino 26 Transf (AST/SGOT) Alanine 14 Aminotransferase (ALT/SG PT) Alkaline Phosphatase 71 Total Protein 7.7 Albumin 4.0 Globulin 3.70 H Albumin/Globulin Ratio 1.08 Triglycerides Level 86 Cholesterol Level 152 LDL Cholesterol, 105 Calculated HDL Cholesterol 30 L Cholesterol/HDL Ratio 5.0 Thyroid Stimulating 1.650 Hormone (TSH) Free Thyroxine Index 4.37 H Thyroxine (T4) 11.6 H Triiodothyronine (T3) 37.7 Uptake Medications Medication Current Medications Amlodipine Besylate (Norvasc) 5 mg BID PO Last administered on 05/05/19at 09:01; Admin Dose 5 MG; Start 05/04/19 at 21:00 Metoclopramide HCl (Reglan) 10 mg TID PRN PO NAUSEA AND/OR VOMITING Last administered on 05/05/19at 06:11; Admin Dose 10 MG; Start 05/04/19 at 15:30 Clonidine (Catapres) 0.1 mg Q4H PRN PO sbp>160; Start 05/04/19 at 15:30 IV Flush (NS 3 ml) 3 ml PER PROTOCOL IV ; Start 05/04/19 at 15:30 Acetaminophen (Tylenol Tab) 650 mg Q6H PRN PO .PAIN 1-3 OR TEMP; Start 05/04/19 at 15:30 Acetaminophen/ Hydrocodone Bitart ([place] (5/325)) 1 tab Q6H PRN PO .MOD PAIN 4- 6; Start 05/04/19 at 15:30 Morphine Sulfate (morphine) 2 mg Q4H PRN IV .SEVERE PAIN 7-10; Start 05/04/19 at 15:30 Famotidine (Pepcid) 20 mg Q12 PO Last administered on 7/2/19at 09:00; Admin Dose 20 MG; Start 05/04/19 at 21:00 Acetaminophen/ Hydrocodone Bitart ([place] (10/325)) 1 tab Q4H PRN PO PAIN Last administered on 05/05/19 09:00; Admin Dose 1 TAB; Start 05/04/19 at 17:00 Fish Oil (Fish Oil) 1,000 mg BID PO Last administered on 05/05/19 09:00; Admin Dose 1,000 MG; Start 05/04/19 at 21:00 DORIS MILLER M.D. May 05, 2019 11:19
[2019-05-05 11:27] VITALS: BP 168/81; PULSE 98; RESP 20
--- NOTE | 2019-05-05 13:50 | PN ---
Date/Time of Note Date/Time of Note DATE: 05/05/19 TIME: 13:47 Assessment/Plan VTE [place] [facility] [place]: 4 SCD applied (from Ns): Yes Pharmacological prophylaxis: LMWH Lines/Catheters IV Catheter Type (from [facility]): Peripheral IV Urinary Cath still in place: No Assessment/Plan Hospital Course Assessment and plan 1. Dyspnea secondary to malignant pleural effusion. - Awaiting for thoracentesis. - Information Writer and oncologist notified. - Discussed possible option for diuretics however patient deferring at this time. 2. History of rectal cancer with previous rectal cancer surgery. - Patient's oncologist notified. - Follow-up recommendations 3. Hypertension. - Will adjust antihypertensives. Monitor for now. 4. Anemia. - H&H remained stable at present. - Monitor trend. 5. Elevated BNP. - Patient's most recent echo done on April 07, 2019 with EF of 55 to 60% with stage II diastolic dysfunction. - Continue medical optimization. - Consider repeat echo should patient's breathing worsen 6. Dyslipidemia. -Continue on fish oil Disposition and plan. Awaiting thoracentesis. Follow-up with imaging after thoracentesis. We discharged within the next 24 hours if remains stable and respiratory status improved. Discussed POC with [facility] Result Diagram: 05/05/19 0611 05/05/19 0612 Results 24hrs Laboratory Tests Test 05/04/19 13:51 05/04/19 13:56 05/04/19 15:17 05/04/19 17:27 White Blood Count 6.1 # Red Blood Count 2.94 L Hemoglobin 8.0 L Hematocrit 25.7 L Mean Corpuscular Volume 87.4 Mean Corpuscular 27.2 L Hemoglobin Mean Corpuscular 31.1 L Hemoglobin Concent Red Cell Distribution 13.8 Width Platelet Count 508 H Mean Platelet Volume 8.7 Immature Granulocytes % 0.200 Neutrophils % 63.4 Lymphocytes % 21.6 Monocytes % 13.3 H Eosinophils % 1.0 Basophils % 0.5 Nucleated Red Blood 0.0 Cells % Immature Granulocytes # 0.010 Neutrophils # 3.9 Lymphocytes # 1.3 Monocytes # 0.8 Eosinophils # 0.1 Basophils # 0.0 Nucleated Red Blood 0.0 Cells # Prothrombin Time 12.8 Prothrombin Time Ratio 1.0 INR International 0.95 Normalized Ratio Sodium Level 139 Potassium Level 4.0 Chloride Level 97 Carbon Dioxide Level 29 Anion Gap 13 Blood Urea Nitrogen 9 Creatinine 0.69 Est Glomerular Filtrat > 60 Rate mL/min Glucose Level 105 Calcium Level 10.0 Total Bilirubin 0.3 Direct Bilirubin 0.00 Indirect Bilirubin 0.3 Aspartate Amino 22 Transf (AST/SGOT) Alanine 11 L Aminotransferase (ALT/SG PT) Alkaline Phosphatase 77 Troponin I < 0.012 B-Type Natriuretic 166 H Peptide Total Protein 8.3 H Albumin 4.3 Globulin 4.00 H Albumin/Globulin Ratio 1.07 POC Venous Lactate 1.2 Lactic Acid Level 1.0 0.9 Test 05/05/19 06:11 05/05/19 06:12 White Blood Count 5.1 Red Blood Count 2.88 L Hemoglobin 7.6 L Hematocrit 24.8 L Mean Corpuscular Volume 86.1 Mean Corpuscular 26.4 L Hemoglobin Mean Corpuscular 30.6 L Hemoglobin Concent Red Cell Distribution 13.9 Width Platelet Count 548 H Mean Platelet Volume 9.1 Immature Granulocytes % 0.400 Neutrophils % 55.5 Lymphocytes % 24.4 Monocytes % 17.9 H Eosinophils % 1.2 Basophils % 0.6 Nucleated Red Blood 0.0 Cells % Immature Granulocytes # 0.020 Neutrophils # 2.8 Lymphocytes # 1.2 Monocytes # 0.9 Eosinophils # 0.1 Basophils # 0.0 Nucleated Red Blood 0.0 Cells # Hemoglobin A1c 5.7 Ferritin 254.0 Sodium Level 141 Potassium Level 3.8 Chloride Level 100 Carbon Dioxide Level 29 Anion Gap 12 Blood Urea Nitrogen 11 Creatinine 0.66 Est Glomerular Filtrat > 60 Rate mL/min Glucose Level 104 Calcium Level 9.8 Phosphorus Level 3.8 Magnesium Level 1.9 Total Bilirubin 0.3 Direct Bilirubin 0.00 Indirect Bilirubin 0.3 Aspartate Amino 26 Transf (AST/SGOT) Alanine 14 Aminotransferase (ALT/SG PT) Alkaline Phosphatase 71 Total Protein 7.7 Albumin 4.0 Globulin 3.70 H Albumin/Globulin Ratio 1.08 Triglycerides Level 86 Cholesterol Level 152 LDL Cholesterol, 105 Calculated HDL Cholesterol 30 L Cholesterol/HDL Ratio 5.0 Thyroid Stimulating 1.650 Hormone (TSH) Free Thyroxine Index 4.37 H Thyroxine (T4) 11.6 H Triiodothyronine (T3) 37.7 Uptake Subjective 24 Hr Interval Summary Free Text/Dictation Reports she has not received thoracentesis yet. Still reports shortness of breath with minimal exertion Exam/Review of Systems Exam Vitals Vital Signs Date Temp Pulse Resp B/P (MAP) Pulse Ox O2 O2 Flow FiO2 Time Delivery Rate 05/05/19 98.0 98 20 168/81 96 Room Air 11:27 (110) Exam Constitutional: alert, oriented Psych: nl mood/affect Head: normocephalic Eyes: nl conjunctiva Neck: supple, non-tender Respiratory: diminished breath sounds ( left lung field) Cardiovascular: other (Regular rate to tachycardic) Gastrointestinal: soft, non-tender Musculoskeletal: nl extremities to inspection Neurological: COLD ROLL CATCHER II-XII intact, nl mental status, nl speech Results Results 24hrs Laboratory Tests Test 05/04/19 13:51 05/04/19 13:56 05/04/19 15:17 05/04/19 17:27 White Blood Count 6.1 # Red Blood Count 2.94 L Hemoglobin 8.0 L Hematocrit 25.7 L Mean Corpuscular Volume 87.4 Mean Corpuscular 27.2 L Hemoglobin Mean Corpuscular 31.1 L Hemoglobin Concent Red Cell Distribution 13.8 Width Platelet Count 508 H Mean Platelet Volume 8.7 Immature Granulocytes % 0.200 Neutrophils % 63.4 Lymphocytes % 21.6 Monocytes % 13.3 H Eosinophils % 1.0 Basophils % 0.5 Nucleated Red Blood 0.0 Cells % Immature Granulocytes # 0.010 Neutrophils # 3.9 Lymphocytes # 1.3 Monocytes # 0.8 Eosinophils # 0.1 Basophils # 0.0 Nucleated Red Blood 0.0 Cells # Prothrombin Time 12.8 Prothrombin Time Ratio 1.0 INR International 0.95 Normalized Ratio Sodium Level 139 Potassium Level 4.0 Chloride Level 97 Carbon Dioxide Level 29 Anion Gap 13 Blood Urea Nitrogen 9 Creatinine 0.69 Est Glomerular Filtrat > 60 Rate mL/min Glucose Level 105 Calcium Level 10.0 Total Bilirubin 0.3 Direct Bilirubin 0.00 Indirect Bilirubin 0.3 Aspartate Amino 22 Transf (AST/SGOT) Alanine 11 L Aminotransferase (ALT/SG PT) Alkaline Phosphatase 77 Troponin I < 0.012 B-Type Natriuretic 166 H Peptide Total Protein 8.3 H Albumin 4.3 Globulin 4.00 H Albumin/Globulin Ratio 1.07 POC Venous Lactate 1.2 Lactic Acid Level 1.0 0.9 Test 05/05/19 06:11 05/05/19 06:12 White Blood Count 5.1 Red Blood Count 2.88 L Hemoglobin 7.6 L Hematocrit 24.8 L Mean Corpuscular Volume 86.1 Mean Corpuscular 26.4 L Hemoglobin Mean Corpuscular 30.6 L Hemoglobin Concent Red Cell Distribution 13.9 Width Platelet Count 548 H Mean Platelet Volume 9.1 Immature Granulocytes % 0.400 Neutrophils % 55.5 Lymphocytes % 24.4 Monocytes % 17.9 H Eosinophils % 1.2 Basophils % 0.6 Nucleated Red Blood 0.0 Cells % Immature Granulocytes # 0.020 Neutrophils # 2.8 Lymphocytes # 1.2 Monocytes # 0.9 Eosinophils # 0.1 Basophils # 0.0 Nucleated Red Blood 0.0 Cells # Hemoglobin A1c 5.7 Ferritin 254.0 Sodium Level 141 Potassium Level 3.8 Chloride Level 100 Carbon Dioxide Level 29 Anion Gap 12 Blood Urea Nitrogen 11 Creatinine 0.66 Est Glomerular Filtrat > 60 Rate mL/min Glucose Level 104 Calcium Level 9.8 Phosphorus Level 3.8 Magnesium Level 1.9 Total Bilirubin 0.3 Direct Bilirubin 0.00 Indirect Bilirubin 0.3 Aspartate Amino 26 Transf (AST/SGOT) Alanine 14 Aminotransferase (ALT/SG PT) Alkaline Phosphatase 71 Total Protein 7.7 Albumin 4.0 Globulin 3.70 H Albumin/Globulin Ratio 1.08 Triglycerides Level 86 Cholesterol Level 152 LDL Cholesterol, 105 Calculated HDL Cholesterol 30 L Cholesterol/HDL Ratio 5.0 Thyroid Stimulating 1.650 Hormone (TSH) Free Thyroxine Index 4.37 H Thyroxine (T4) 11.6 H Triiodothyronine (T3) 37.7 Uptake Medications Medication Current Medications Amlodipine Besylate (Norvasc) 5 mg BID PO Last administered on 05/05/19at 09:01; Admin Dose 5 MG; Start 05/04/19 at 21:00 Metoclopramide HCl (Reglan) 10 mg TID PRN PO NAUSEA AND/OR VOMITING Last administered on 05/05/19at 13:01; Admin Dose 10 MG; Start 05/04/19 at 15:30 Clonidine (Catapres) 0.1 mg Q4H PRN PO sbp>160; Start 05/04/19 at 15:30 IV Flush (NS 3 ml) 3 ml PER PROTOCOL IV ; Start 05/04/19 at 15:30 Acetaminophen (Tylenol Tab) 650 mg Q6H PRN PO .PAIN 1-3 OR TEMP; Start 05/04/19 at 15:30 Acetaminophen/ Hydrocodone Bitart ([place] (5/325)) 1 tab Q6H PRN PO .MOD PAIN 4- 6; Start 05/04/19 at 15:30 Morphine Sulfate (morphine) 2 mg Q4H PRN IV .SEVERE PAIN 7-10; Start 05/04/19 at 15:30 Famotidine (Pepcid) 20 mg Q12 PO Last administered on 05/05/19at 09:00; Admin Dose 20 MG; Start 05/04/19 at 21:00 Acetaminophen/ Hydrocodone Bitart ([place] (10/325)) 1 tab Q4H PRN PO PAIN Last administered on 05/05/19at 13:00; Admin Dose 1 TAB; Start 05/04/19 at 17:00 Fish Oil (Fish Oil) 1,000 mg BID PO Last administered on 05/05/19at 09:00; Admin Dose 1,000 MG; Start 05/04/19 at 21:00 BREANNE WHITMAN NP May 05, 2019 13:50
[2019-05-05 15:49] VITALS: BP 160/83; PULSE 87; RESP 20
--- NOTE | 2019-05-05 16:53 | CONS ---
DATE OF ADMISSION: 05/04/2019 DATE OF CONSULTATION: REASON FOR CONSULTATION: Shortness of breath. Thank you, Dr. Crawford, for this consultation. HISTORY OF PRESENT ILLNESS: This is an unfortunate 63-year-old lady with a history of malignant anal carcinoma with pleural metastasis and recurrent pleural effusion, comes in with increasing shortness of breath, orthopnea, PND, found to have recurrent left pleural effusion in which she underwent thor acentesis approximately 1 month ago. The patient continues chemotherapy per Dr. Haider. As stated, s he has had thoracentesis x1 approximately 1 month ago. PAST MEDICAL HISTORY: As above. MEDICATIONS: Per chart. ALLERGIES: SULFA. SOCIAL HISTORY: Nonsmoker, no alcohol, no history of drug use. FAMILY HISTORY: Noncontributory. SYSTEMS REVIEW: A 12-point review of systems was negative other than mentioned above. PHYSICAL EXAMINATION: GENERAL: Well-nourished, well-developed lady, comfortable at rest in no acute distress. VITAL SIGNS: Currently afebrile, pulse is 98, blood pressure 160/81, O2 saturation 96% on room air. NECK: Supple. No JVD or lymphadenopathy. CARDIAC: S1, S2. No added sounds or murmurs. CHEST: Diminished air entry bilaterally. ABDOMEN: Soft, nontender. No guarding or rebound. EXTREMITIES: No cyanosis, clubbing, or edema. NEUROLOGIC: Grossly intact. No focal deficits. LABORATORY DATA: White count 5.1, hemoglobin 7.6, platelets of 548. Chemistry within normal limits. INR 0.937. IMPRESSION AND PLAN: Recurrent left malignant pleural effusion from metastatic rectal carcinoma. Th e patient will require: 1. Thoracentesis. 2. Discussed possibility of PleurX catheter. The patient wishes to hold off at present. 3. Continue O2 as tolerated. 4. DVT and GI prophylaxis. Dictated By: HAROON KAT MD SV/NTS Conf#: [id number] DID#: [id number] CC: MERVIN CRAWFORD MD; EDELMIRA BACON;*EndCC*
[2019-05-05 20:26] VITALS: BP 142/81; PULSE 86; RESP 18
[2019-05-06 00:45] VITALS: BP 145/70; PULSE 99; RESP 18
[2019-05-06] MEDS: METOCLOPRAMIDE 10 MG TAB PO PRN ×4 (00:56→17:29)
[2019-05-06] MEDS: HYDROCODONE/APAP (10/325) TAB PO PRN ×6 (00:57→21:40)
[2019-05-06 03:41] VITALS: BP 144/75; PULSE 87; RESP 18
[2019-05-06 08:00] VITALS: BP 154/70; PULSE 88; RESP 18
[2019-05-06] MEDS: ENOXAPARIN 40 MG/0.4 ML SYG SC SCH (09:00)
[2019-05-06] MEDS: FISH OIL 1,000 MG CAP PO SCH ×2 (09:23→20:06)
[2019-05-06] MEDS: AMLODIPINE 5 MG TAB PO SCH ×2 (09:23→20:06)
[2019-05-06] MEDS: FAMOTIDINE 20 MG TAB PO SCH ×2 (09:23→20:06)
[2019-05-06] MEDS ORDERED: OMEG100024 PO (11:18)
--- NOTE | 2019-05-06 11:20 | PDOCDIS ---
Discharge Instructions DIAGNOSIS Discharge Diagnosis 1. Dyspnea secondary to malignant pleural effusion. 2. History of rectal cancer with previous rectal cancer surgery. 3. Hypertension. 4. Anemia. 5. Elevated BNP. 6. Dyslipidemia. CONDITION [id number] Patient Condition: [id number] Stable HOME CARE INSTRUCTIONS: [id number] Diet Instructions: [id number] Low Fat /Cholesterol FOLLOW UP/APPOINTMENTS Follow-up Plan 1. Follow up with Dr. Emilie Haider in one week BREANNE WHITMAN NP May 06, 2019 11:20
[2019-05-06 12:00] VITALS: BP 125/61; PULSE 100; RESP 18
[2019-05-06 16:00] VITALS: BP 144/71; PULSE 96; RESP 18
--- NOTE | 2019-05-06 17:22 | CONS ---
Consult Date/Type/Reason Admit Date/Time May 04, 2019 at 13:39 Initial Consult Date 05/05/19 Type of Consult Pulmonary Requesting Provider: EDELMIRA BACON Date/Time of Note DATE: 05/06/19 TIME: 17:21 Subjective Thoracentesis performed today feels somewhat better. Objective Vital Signs Date Temp Pulse Resp B/P (MAP) Pulse Ox O2 O2 Flow FiO2 Time Delivery Rate 05/06/19 98.8 96 18 144/71 98 16:00 (95) 05/06/19 Room Air 03:41 Intake and Output 05/05/19 05/05/19 05/06/19 1414:59 22:59 06:59 IntakeIntake Total 500 ml OutputOutput Total 900 ml BalanceBalance -400 ml Exam PHYSICAL EXAMINATION: GENERAL: Well-nourished, well-developed lady, comfortable at rest in no acute distress. VITAL SIGNS: NECK: Supple. No JVD or lymphadenopathy. CARDIAC: S1, S2. No added sounds or murmurs. CHEST: Diminished air entry bilaterally. ABDOMEN: Soft, nontender. No guarding or rebound. EXTREMITIES: No cyanosis, clubbing, or edema. NEUROLOGIC: Grossly intact. No focal deficits. Results/Medications Result Diagram: 05/06/19 0546 05/06/19 0546 Results 24 hrs Laboratory Tests Test 05/06/19 05:46 White Blood Count 3.8 #L Red Blood Count 2.81 L Hemoglobin 7.7 L Hematocrit 24.2 L Mean Corpuscular Volume 86.1 Mean Corpuscular Hemoglobin 27.4 L Mean Corpuscular Hemoglobin Concent 31.8 L Red Cell Distribution Width 13.8 Platelet Count 516 H Mean Platelet Volume 8.8 Immature Granulocytes % 0.300 Neutrophils % Segmented Neutrophils % (Manual) 51 Lymphocytes % Lymphocytes % (Manual) 29 Monocytes % Monocytes % (Manual) 17 H Eosinophils % Eosinophils % (Manual) 1 Basophils % Nucleated Red Blood Cells % 0.0 Immature Granulocytes # 0.010 Neutrophils # Lymphocytes (Manual) 1.1 Lymphocytes # 1.1 Monocytes # 0.6 Monocytes # (Manual) 0.6 Eosinophils # 0.0 Basophils # 0.1 Nucleated Red Blood Cells # Polychromasia 1+ Hypochromasia 1+ Sodium Level 139 Potassium Level 4.1 Chloride Level 101 Carbon Dioxide Level 30 Anion Gap 8 Blood Urea Nitrogen 8 Creatinine 0.74 Est Glomerular Filtrat Rate mL/min > 60 Glucose Level 105 Calcium Level 9.2 Medications Current Medications Amlodipine Besylate (Norvasc) 5 mg BID PO Last administered on 05/06/19 09:23; Admin Dose 5 MG; Start 05/04/19 at 21:00 Metoclopramide HCl (Reglan) 10 mg TID PRN PO NAUSEA AND/OR VOMITING Last administered on 05/06/19at 13:04; Admin Dose 10 MG; Start 05/04/19 at 15:30 Clonidine (Catapres) 0.1 mg Q4H PRN PO sbp>160; Start 05/04/19 at 15:30 IV Flush (NS 3 ml) 3 ml PER PROTOCOL IV ; Start 05/04/19 at 15:30 Acetaminophen (Tylenol Tab) 650 mg Q6H PRN PO .PAIN 1-3 OR TEMP; Start 05/04/19 at 15:30 Acetaminophen/ Hydrocodone Bitart ([place] (5/325)) 1 tab Q6H PRN PO .MOD PAIN 4- 6; Start 05/04/19 at 15:30 Morphine Sulfate (morphine) 2 mg Q4H PRN IV .SEVERE PAIN 7-10; Start 05/04/19 at 15:30 Famotidine (Pepcid) 20 mg Q12 PO Last administered on 05/06/19at 09:23; Admin Dose 20 MG; Start 05/04/19 at 21:00 Acetaminophen/ Hydrocodone Bitart ([place] (10/325)) 1 tab Q4H PRN PO PAIN Last administered on 05/06/19at 13:04; Admin Dose 1 TAB; Start 05/04/19 at 17:00 Fish Oil (Fish Oil) 1,000 mg BID PO Last administered on 05/06/19 09:23; Admin Dose 1,000 MG; Start 05/04/19 at 21:00 Enoxaparin Sodium (Lovenox) 40 mg DAILY SC ; Start 05/06/19 at 09:00 Assessment/Plan Hospital Course (Demo Recall) IMPRESSION 1. Recurrent left malignant pleural effusion from metastatic rectal carcinoma. Plan 1. Status post thoracentesis however chest x-ray demonstrates likely loculated effusion. 2. Patient declined Pleurx catheter at this point 3. CT chest to evaluate effusion post thoracentesis if significant loculations will need decortication. . 4. DVT and GI prophylaxis. HAROON KAT MD, [facility] May 06, 2019 17:22
[2019-05-06 20:00] VITALS: BP 174/88; PULSE 91; RESP 18
--- NOTE | 2019-05-06 21:03 | PN ---
Date/Time of Note Date/Time of Note DATE: 05/06/19 TIME: 21:00 Assessment/Plan VTE Prophylaxis Risk score (from Ns)>0 risk: 7 SCD applied (from Ns): Yes Pharmacological prophylaxis: LMWH Lines/Catheters IV Catheter Type (from [facility]): Peripheral IV Urinary Cath still in place: No Assessment/Plan Hospital Course Assessment and plan 1. Dyspnea secondary to malignant pleural effusion. -Status post thoracentesis. - [employer] Architect and oncologist notified. - Discussed possible option for diuretics however patient deferring at this time. -CT scan of the chest May 06, 2019: [id number] loculated pleural effusion in the posterior left chest. There is a thick rim of density surrounding the effusion and the effusion contains heterogeneous densities. There is also irregular pleural thickening along the medial aspect of the left upper lobe. These findings are most consistent with a neoplastic process. -Follow-up oncology and pulmonary recommendations -We will discuss possible cardiothoracic surgeon consultation 2. History of rectal cancer with previous rectal cancer surgery. - Patient's oncologist notified. -Continue recommendations 3. Hypertension. -Antihypertensives as needed 4. Anemia. - H&H remained stable at present. - Monitor trend. 5. Elevated BNP. - Patient's most recent echo done on April 07, 2019 with EF of 55 to 60% with stage II diastolic dysfunction. - Continue medical optimization. - Consider repeat echo should patient's breathing worsen 6. Dyslipidemia. -Continue on fish oil Disposition and plan. Will discuss with care team about possible cardiothoracic surgeon consultation considering patient's recent CT scan of the chest. Follow- up with pulmonary recommendations. Continue in-house monitoring.. Discussed POC with [facility] Result Diagram: 05/06/19 0546 05/06/19 0546 Results 24hrs Laboratory Tests Test 05/06/19 05:46 White Blood Count 3.8 #L Red Blood Count 2.81 L Hemoglobin 7.7 L Hematocrit 24.2 L Mean Corpuscular Volume 86.1 Mean Corpuscular Hemoglobin 27.4 L Mean Corpuscular Hemoglobin Concent 31.8 L Red Cell Distribution Width 13.8 Platelet Count 516 H Mean Platelet Volume 8.8 Immature Granulocytes % 0.300 Neutrophils % Segmented Neutrophils % (Manual) 51 Lymphocytes % Lymphocytes % (Manual) 29 Monocytes % Monocytes % (Manual) 17 H Eosinophils % Eosinophils % (Manual) 1 Basophils % Nucleated Red Blood Cells % 0.0 Immature Granulocytes # 0.010 Neutrophils # Lymphocytes (Manual) 1.1 Lymphocytes # 1.1 Monocytes # 0.6 Monocytes # (Manual) 0.6 Eosinophils # 0.0 Basophils # 0.1 Nucleated Red Blood Cells # Polychromasia 1+ Hypochromasia 1+ Sodium Level 139 Potassium Level 4.1 Chloride Level 101 Carbon Dioxide Level 30 Anion Gap 8 Blood Urea Nitrogen 8 Creatinine 0.74 Est Glomerular Filtrat Rate mL/min > 60 Glucose Level 105 Calcium Level 9.2 Subjective 24 Hr Interval Summary Free Text/Dictation Reports better breathing status post thoracentesis. Exam/Review of Systems Exam Vitals Vital Signs Date Temp Pulse Resp B/P (MAP) Pulse Ox O2 O2 Flow FiO2 Time Delivery Rate 05/06/19 99.5 91 18 174/88 99 20:00 (116) 05/06/19 Room Air 03:41 Intake and Output 05/05/19 05/05/19 05/06/19 1515:00 23:00 07:00 IntakeIntake Total 500 ml OutputOutput Total 900 ml BalanceBalance -400 ml Exam Constitutional: alert, oriented Psych: nl mood/affect Head: normocephalic Eyes: nl conjunctiva Neck: supple, non-tender Respiratory: diminished breath sounds ( left lung field, less) Cardiovascular: other (Regular rate to tachycardic) Gastrointestinal: soft, non-tender Musculoskeletal: nl extremities to inspection Neurological: HAIR BOILER II-XII intact, nl mental status, nl speech Results Results 24hrs Laboratory Tests Test 05/06/19 05:46 White Blood Count 3.8 #L Red Blood Count 2.81 L Hemoglobin 7.7 L Hematocrit 24.2 L Mean Corpuscular Volume 86.1 Mean Corpuscular Hemoglobin 27.4 L Mean Corpuscular Hemoglobin Concent 31.8 L Red Cell Distribution Width 13.8 Platelet Count 516 H Mean Platelet Volume 8.8 Immature Granulocytes % 0.300 Neutrophils % Segmented Neutrophils % (Manual) 51 Lymphocytes % Lymphocytes % (Manual) 29 Monocytes % Monocytes % (Manual) 17 H Eosinophils % Eosinophils % (Manual) 1 Basophils % Nucleated Red Blood Cells % 0.0 Immature Granulocytes # 0.010 Neutrophils # Lymphocytes (Manual) 1.1 Lymphocytes # 1.1 Monocytes # 0.6 Monocytes # (Manual) 0.6 Eosinophils # 0.0 Basophils # 0.1 Nucleated Red Blood Cells # Polychromasia 1+ Hypochromasia 1+ Sodium Level 139 Potassium Level 4.1 Chloride Level 101 Carbon Dioxide Level 30 Anion Gap 8 Blood Urea Nitrogen 8 Creatinine 0.74 Est Glomerular Filtrat Rate mL/min > 60 Glucose Level 105 Calcium Level 9.2 Medications Medication Current Medications Amlodipine Besylate (Norvasc) 5 mg BID PO Last administered on 05/06/19 20:06; Admin Dose 5 MG; Start 05/04/19 at 21:00 Metoclopramide HCl (Reglan) 10 mg TID PRN PO NAUSEA AND/OR VOMITING Last administered on 05/06/19 17:29; Admin Dose 10 MG; Start 05/04/19 at 15:30 Clonidine (Catapres) 0.1 mg Q4H PRN PO sbp>160; Start 05/04/19 at 15:30 IV Flush (NS 3 ml) 3 ml PER PROTOCOL IV ; Start 05/04/19 at 15:30 Acetaminophen (Tylenol Tab) 650 mg Q6H PRN PO .PAIN 1-3 OR TEMP; Start 05/04/19 at 15:30 Acetaminophen/ Hydrocodone Bitart ([place] (5/325)) 1 tab Q6H PRN PO .MOD PAIN 4- 6; Start 05/04/19 at 15:30 Morphine Sulfate (morphine) 2 mg Q4H PRN IV .SEVERE PAIN 7-10; Start 05/04/19 at 15:30 Famotidine (Pepcid) 20 mg Q12 PO Last administered on 05/06/19 20:06; Admin Dose 20 MG; Start 05/04/19 at 21:00 Acetaminophen/ Hydrocodone Bitart ([place] (10/325)) 1 tab Q4H PRN PO PAIN Last administered on 05/06/19 17:29; Admin Dose 1 TAB; Start 05/04/19 at 17:00 Fish Oil (Fish Oil) 1,000 mg BID PO Last administered on 05/06/19 20:06; Admin Dose 1,000 MG; Start 05/04/19 at 21:00 Enoxaparin Sodium (Lovenox) 40 mg DAILY SC ; Start 05/06/19 at 09:00 BREANNE WHITMAN NP May 06, 2019 21:03
[2019-05-07] VITALS: BP 144/70; PULSE 99; RESP 18
[2019-05-07] MEDS: HYDROCODONE/APAP (10/325) TAB PO PRN ×2 (01:40→05:41)
[2019-05-07 04:00] VITALS: BP 138/65; PULSE 93; RESP 18
[2019-05-07 07:25] VITALS: BP 150/79; PULSE 88; RESP 20
[2019-05-07] MEDS: FISH OIL 1,000 MG CAP PO SCH (08:40)
[2019-05-07] MEDS: AMLODIPINE 5 MG TAB PO SCH (08:41)
[2019-05-07] MEDS: ENOXAPARIN 40 MG/0.4 ML SYG SC SCH (08:41)
[2019-05-07] MEDS: METOCLOPRAMIDE 10 MG TAB PO PRN (08:41)
[2019-05-07] MEDS: FAMOTIDINE 20 MG TAB PO SCH (08:41)
--- NOTE | 2019-05-07 14:11 | DS ---
Date/Time of Note Date/Time of Note DATE: 05/07/19 TIME: 14:08 Discharge Summary Admission/Discharge Info Admit Date/Time May 04, 2019 at 13:39 Discharge Date/Time May 07, 2019 at 11:25 Discharge Diagnosis 1. Dyspnea secondary to malignant pleural effusion. 2. History of rectal cancer with previous rectal cancer surgery. 3. Hypertension. 4. Anemia. 5. Elevated BNP. 6. Dyslipidemia. Hospital Course This is a 63-year-old female with history of anal cancer with reported labial metastasis who came to the hospital due to reports of increased shortness of breath. Patient reportedly was scheduled for thoracentesis on May 18 for recurrent malignant effusion is. However she reports that she had increased shortness of breath and as such was advised to return to the hospital for thoracentesis by her oncologist. Patient was noted with diminished lung sounds on left lung field. She denies any cough or fever but does report increased shortness of breath for several days prior to admission with more dyspnea noted on exertion. She does report that she does follow-up with her oncologist Dr. Haider for chemotherapy and has been compliant with regimen. Patient did undergo thoracentesis. She was seen by associate embalmer/funeral director and oncologist. Due to chest imag ing we did get CT scan of the chest on May 06, 2019. Did show moderate to large loculated pleural effusion in the posterior left chest. She was advised for possible cardiothoracic surgeon consultation and diuretics however patient referred any intervention or diuretics at this time. She did states she would follow-up with oncologist and would follow-up on May 13, 2019 for her scheduled thoracentesis again. She was advised for follow-up with primary care provider as well and to come to the hospital should her worsening breathing occur again. She was advised outpatient follow-up with her oncologist for history of rectal cancer. She was otherwise optimized medically with antihypertensives and need for high blood pressure. She was noted to be anemic but her H&H did remain stable. We will monitor this. She was also started on fish oil for dyslipidemia. During the course of stay she did improve. She was able to ambulate on room air with no significant debility. The plan of care was discussed with the patient and patient verbalized understanding. On the day of discharge patient was in stable condition Discussed POC with Dr. Blackburn Home Meds Active Scripts [place]-3/Dha/Epa/Fish Oil (Fish Oil 1,000 mg Softgel) 1,000 Mg Capsule, 1000 MG PO BID, #60 CAP Prov:BREANNE WHITMAN BOTTOM HOOP DRIVER 05/06/19 Reported Medications Metoclopramide Hcl* (Metoclopramide Hcl*) 10 Mg Tablet, 10 MG PO TID PRN for NAUSEA AND OR VOMITING, TAB 05/04/19 Hydrocodone/Acetaminophen ([place] 10-325 Tablet) 1 Each Tablet, 1 EACH PO Q4 PRN for PAIN, TAB 05/04/19 Amlodipine Besylate* (Norvasc*) 5 Mg Tablet, 5 MG PO BID, TAB 04/07/19 Discontinued Reported Medications Hydrocodone/Acetaminophen ([place] 10-325 Tablet) 1 Each Tablet, 1 EACH PO Q6H, TAB 04/07/19 Discontinued Scripts Furosemide* (Lasix*) 20 Mg Tablet, 20 MG PO BID PRN for sob and swelling, #14 TAB Prov:QUINN GANDARA 04/09/19 Follow-up Plan 1. Follow up with Dr. Emilie Haider in one week Primary Care Provider Not On Staff Doctor Time spent on discharge: > 30 minutes BREANNE WHITMAN [employer]OTT[employer] DRIVER May 07, 2019 14:11
== END 2019-05-07 11:25 | disposition home or self-care (01) | DRG 375 ==
LOC: E/R 12:53 → TEL 13:39
PROVIDERS: ADMIT Hospitalist; ATTEND Hospitalist
PROC: 0W9B3ZZ Drainage of Left Pleural Cavity, Percutaneous Approach (ICD-10-PCS; principal; 2019-05-05)
DX: C20 Malignant neoplasm of rectum (principal); J91.0 Malignant pleural effusion; C79.82 Secondary malignant neoplasm of genital organs; I10 Essential (primary) hypertension; E78.5 Hyperlipidemia, unspecified; M06.9 Rheumatoid arthritis, unspecified
CPT/HCPCS: 32555; 71045; 71250; 80048; 80053; 80061; 82728; 83036; 83605; 83735; 83880; 84100; 84436; 84443; 84479; 84484; 85025; 85610; 93005; J1650